=== PATIENT | female | born 1980 | race Caucasian/White ===

== ENCOUNTER 2020-06-26 08:00 | Emergency (ER) | payer OTHER, SELFPAY ==
[2020-06-26 08:17] VITALS: BP 123/82; PULSE 66; RESP 20; TEMP 36.9; O2SAT 98
--- NOTE | 2020-06-26 08:51 | ED.URI ---
HPI - URI/Sore Throat General Chief Complaint: Upper Respiratory Infection Stated Complaint: abrams/loss of smell/congestion Time Seen by Provider: 06/26/20 08:35 Source: patient Mode of arrival: ambulatory Limitations: no limitations History of Present Illness HPI Narrative: This patient is a 39 year old female who presents for evaluation headache and sinus congestion. She states 2 days ago she developed sinus congestion, fever and frontal headache. She states her fever has resolved but she is still getting a headache and neck pain. She denies shortness of breath or chest pain. She reports her family has similar symptoms but she got scared so she came to ER. Related Data Home Medications Medication Instructions Recorded Confirmed valacyclovir 06/26/20 Allergies Allergy/AdvReac Type Severity Reaction Status Date / Time codeine Allergy Mild Rash Verified 06/26/20 08:35 Review of Systems Review of Systems: All systems reviewed & are unremarkable except as noted in HPI and below Constitutional: Constitutional: Reports chills and Reports fever(s) ENT: Reports nasal congestion Cardiovascular: Cardiovascular: Denies chest pain Respiratory: Respiratory: Denies dyspnea Gastrointestinal: Gastrointestinal: Denies abdominal pain and Reports nausea Neurologic: Reports headache(s) [facility] [place] Past Medical History Medical History (Updated 06/26/20 @ 10:00 by Sparkle Velazquez MD) Patient denies medical problems Surgical History Surgical History (Updated 06/26/20 @ 08:54 by Sparkle Velazquez MD) H/O section History of cholecystectomy Social History Social History (Updated 06/26/20 @ 08:55 by Sparkle Velazquez MD) Smoking status: Never smoker Exam Const: General: no acute distress and alert Orientation/consciousness: patient oriented x3 HENMT: Head: normocephalic and atraumatic Face and sinus: face symmetric Mouth: Yes Normal oral and palatal mucosa present, Yes lip normal, Yes oropharynx normal and Yes moist mucous membranes Eyes: Conjunctivae: conjunctivae normal Pupils: Equal, round and reactive pupils present EOM: EOMs intact bilaterally Chest: Chest palpation & inspection: normal inspection of the chest Resp: Effort & Inspection: normal respiratory effort and no retractions Auscultation: clear to auscultation bilaterally Cardio: Rate: regular rate Rhythm: regular rhythm Heart sounds: no murmurs Skin: General skin exam: normal color Rashes: no rashes Neuro: General: patient oriented x3, moves all extremities, no meningeal signs, no focal motor deficits and CN's II-XI intact bilaterally Cranial nerves: Yes Nystagmus not present Speech: normal speech Gait exam (Neuro): Normal gait present Psych: Mental Status: mental status grossly normal Affect: normal affect Course Reevaluation(s) Reevaluation #1: PAtient states she was just told her grandma and sister tested positive. Date: 06/26/20 Time: 09:59 Vital Signs Vital signs: Vital Signs Temperature 98.4 F 06/26/20 08:17 Pulse Rate 66 06/26/20 08:17 Respiratory Rate 20 06/26/20 08:17 Blood Pressure 123/82 06/26/20 08:17 Pulse Oximetry 98 06/26/20 08:17 Temperature 98.4 F 06/26/20 08:17 Pulse Rate 66 06/26/20 08:17 Respiratory Rate 20 06/26/20 08:17 Blood Pressure 123/82 06/26/20 08:17 Pulse Oximetry 98 06/26/20 08:17 MDM - URI/Sore Throat Lab Data Labs: Lab Results 06/26/20 Range/Units 09:05 SARS-CoV-2 RNA (RT-PCR) Pending Discharge Plan Discharge Clinical Impression: Suspected 2019-nCoV infection, URI (upper respiratory infection) Patient Disposition: Home, Self-Care Condition: Stable Instructions: Viral Syndrome (ED), COVID-19 (Coronavirus Disease 2019) (ED) Additional Instructions: You will need to quarantine until 10 days after start of your symptoms. Prescriptions: No Action valacyclovir 1 gram tablet RF: 0 Follow-up/
[2020-06-26] MEDS: KETOROLAC (*BKC) 60 MG/2 ML VIAL IM (09:16)
[2020-06-26] MEDS: ONDANSETRON HCL ODT 4 MG TABLET PO (09:16)
[2020-06-26 19:16] LABS: SARS-CoV-2 RNA PCR Positive
== END 2020-06-26 10:14 | disposition home or self-care (01) ==
PROVIDERS: Emergency Provider General Practice
DX: U07.1 COVID-19 (principal); J06.9 Acute upper respiratory infection, unspecified
CPT/HCPCS: 87635; 96372; 99283; A9270; C9803; J1885; U0003

== ENCOUNTER 2020-09-27 21:22 | Emergency (ER) | payer OTHER, SELFPAY ==
--- NOTE | ~2020-09-27 | CT_ITS ---
EXAMINATION: CTA chest PE protocol DATE: 09/28/2020 02:16 INDICATION: Shortness of breath. TECHNIQUE: Computed tomography angiography (CTA) of the chest was performed with 100 mL Omnipaque-350 intravenous contrast timed to evaluate the pulmonary arteries. Coronal maximum intensity projection 3D-reconstructions were created by the technologist. Automated exposure control and iterative reconst ruction technique were employed. The dose-length product was 844.64 mGy-cm. COMPARISON: CT abdomen and pelvis 04/30/2017 FINDINGS: The lungs demonstrate minimal atelectasis. A calcified left lung nodule and calcified left hilar lymph nodes are consistent with old granulomatous disease. No pleural effusion. The heart size is normal. No pericardial effusion. There is residual thymus in the anterior mediastinum. There are s urgical changes of the stomach. There are changes of cholecystectomy. There is no pulmonary embolus. There is mild thoracic spondylosis. IMPRESSION: 1. No pulmonary embolus. Reviewed, dictated and finalized at location A. 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 No pulmonary embolus.
--- NOTE | ~2020-09-27 | XR_ITS ---
EXAMINATION: XR chest 1V portable DATE: 09/28/2020 01:25 INDICATION: Fever. Shortness of breath. TECHNIQUE: A single frontal view of the chest was obtained. COMPARISON: Chest 2 views 12/31/2015, chest CT 09/28/2020 FINDINGS: The chest demonstrates clear lungs without pneumonia, pleural effusion, or pneumothorax. Th e heart size is normal. IMPRESSION: 1. No acute cardiopulmonary disease. Reviewed, dictated and finalized at location A. 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
[2020-09-27 21:24] VITALS: BP 125/74; PULSE 107; RESP 16; TEMP 37.2; O2SAT 97
[2020-09-28 00:36] VITALS: BP 124/68; PULSE 93; RESP 17; TEMP 38.1; O2SAT 97
--- NOTE | 2020-09-28 01:06 | ECG_ITS ---
Measurements Intervals [place] Rate: 85 P: 40 IN: 188 QRS: 14 QRSD: 103 T: 33 QT: 358 QTc: 428 Interpretive Statements SINUS RHYTHM INCOMPLETE RIGHT BUNDLE BRANCH BLOCK BORDERLINE ECG Electronically Signed On 09-28-2020 7:00:02 TELECOMMUNICATIONS CLERK by Kevin Wall D.O.
--- NOTE | 2020-09-28 01:08 | ED.GENADULT ---
HPI - General Adult General Chief complaint: Nausea/Vomiting/Diarrhea Stated complaint: chills nausea Time Seen by Provider: 09/28/20 00:50 Source: patient Mode of arrival: ambulatory Limitations: no limitations History of Present Illness HPI narrative: This is a 40 year old female who presents for evaluation of not feeling well. She states starting at 4 pm yesterday she developed bodyaches, chills, sweats. She also reports nausea. 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 She has not taken anything for her symptoms. She denies cough, chest pain, abdominal pain, or urinary symptoms. She was found to have fever in triage. Related Data Home Medications Medication Instructions Recorded Confirmed valacyclovir 06/26/20 07/02/20 Allergies Allergy/AdvReac Type Severity Reaction Status Date / Time codeine Allergy Mild Rash Verified 09/28/20 00:38 Review of Systems Review of Systems: All systems reviewed & are unremarkable except as noted in HPI and below Constitutional: Constitutional: Reports chills and Reports fatigue ENT: Denies nasal congestion and Denies sore throat Cardiovascular: Cardiovascular: Denies chest pain Respiratory: Respiratory: Denies cough and Reports dyspnea Gastrointestinal: Gastrointestinal: Denies abdominal pain, Denies diarrhea, Reports nausea and Denies vomiting Neurologic: Reports headache(s) PMFSH Past Medical History Medical History (Updated 09/28/20 @ 02:53 by Sparkle Velazquez MD) GERD (gastroesophageal reflux disease) HSV-2 (herpes simplex virus 2) infection Surgical History Surgical History (Updated 07/02/20 @ 09:59 by Effie Domínguez NP) H/O section x3 H/O dilation and curettage H/O gastric bypass H/O: hysterectomy History of cholecystectomy History of tonsillectomy and adenoidectomy Family History Family History (Updated 07/02/20 @ 08:18 by Nay Damon CMA) Grandparent Cancer Kidney problem Social History Social History (Updated 06/26/20 @ 08:55 by Sparkle Velazquez MD) Smoking status: Never smoker Gender identity (if verbalized by the patient): Female Exam Narrative: Exam Narrative: GENERAL: Well-appearing, well-nourished, and in no acute distress. HEAD: Normocephalic, atraumatic EYES: PERRLA and EOMI, conjunctiva clear without discharge EARS: TM's clear bilaterally without erythema or dullness NOSE: Nares clear, no rhinorrhea or epistaxis THROAT:Mucous membranes moist, Oropharynx normal without erythema, exudate, peritonsillar swelling or fluctuance NECK: Supple, without lymphadenopathy or mass RESPIRATORY: No respiratory distress, Airway patent, Respirations non-labored, Clear to auscultation without rales, rhonchi or wheeze HEART: Regular rate and rhythm. No murmur heard. Normal peripheral pulses. ABDOMEN: Soft, nontender, nondistended, normal active bowel sounds. No masses. No rebound or guarding, No organomegaly. EXTREMITIES: No edema, normal strength with full range of motion. SKIN: Warm, dry, normal color without rash NEURO: Alert and oriented x3. CN 2-12 grossly intact. No focal deficits. PSYCH: Normal mood and affect. Course Reevaluation(s) Reevaluation #1: I have discussed with patient that she was found to have influenza B as cause of her symptoms. COVID is still pending but she had 3 months ago. I Discussed discharge plan and treatment. Date: 09/28/20 Time: 02:48 Vital Signs Vital signs: Vital Signs Temperature 98.9 F 09/27/20 21:24 Pulse Rate 107 H 09/27/20 21:24 Respiratory Rate 16 09/27/20 21:24 Blood Pressure 125/74 09/27/20 21:24 Pulse Oximetry 97 09/27/20 21:24 Temperature 98.9 F 09/28/20 03:06 Pulse Rate 81 09/28/20 03:06 Respiratory Rate 16 09/28/20 03:06 Blood Pressure 127/86 09/28/20 03:06 Pulse Oximetry 98 09/28/20 03:06 Medical Decision Making Medical Records Medical records reviewed: Yes I reviewed the exter
[2020-09-28 01:35] LABS: Basophils Percent Auto 0.1 % (0.2-1.2); Eosinophils Percent Auto 0.2 % (0-4.4); Hemoglobin 14.3 g/dL (12.0-15.0); Immature Granulocyte Absolute 0.03 K/mm3 (0.00-0.031); Immature Granulocyte Percent A 0.3 % (0-0.5); Lymphocytes Absolute Auto 0.59 K/mm3 (0.9-3.2); Lymphocytes Percent Auto 6.8 % (18.3-44.2); Mean Corpuscular Hemoglobin 30.4 pg (26-34); Mean Corpuscular Volume 89.4 fl (80-100); Mean Platelet Volume 9.4 fl (7.4-10.4); Monocytes Absolute Auto 0.6 K/mm3 (0.1-0.6); Monocytes Percent Auto 6.8 % (2.6-8.5); Neutrophils Absolute Auto 7.4 K/mm3 (1.3-6.7); Neutrophils Percent Auto 85.8 % (45.5-73.1); Platelet Count Result 178 k/mm3 (150-375); Red Cell Distribution Width 12.2 % (11.5-14.5); White Blood Count 8.6 K/mm3 (4.5-10.0)
[2020-09-28] MEDS: ONDANSETRON INJ 4 MG/2 ML VIAL IV PUSH (01:44)
[2020-09-28] MEDS: SODIUM CHLORIDE 0.9% IV 1,000 ML 999 ML IV CONT (01:44)
[2020-09-28 01:47] LABS: INR 0.9; Prothrombin Time 13.1 Seconds (11.1-14.7)
[2020-09-28 01:48] LABS: Partial Thromboplastin Time 32.1 SECONDS (22.3-36.8)
[2020-09-28 01:50] LABS: Add Urine Microscopic? NO; Appearance Urine Clear (Clear); Bilirubin Urine Negative (Negative); Blood Urine Negative (Negative); Color Urine Yellow (Yellow); D Dimer 0.78 ug/mL (<0.48); Glucose Urine UA Negative (Negative); Ketones Urine Negative (Negative); Leukocyte Esterase Ur Negative LEU/UL (Negative); Nitrate Urine Negative (Negative); Protein Urine Negative (Negative); Specific Grav Ur 1.015 (1.001-1.035); Urobilinogen Urine Negative mg/dL (<2.0)
[2020-09-28 01:53] LABS: Alanine Aminotransferase 21 U/L (4-35); Albumin Level 3.7 g/dL (3.5-5.1); Alkaline Phosphatase 115 U/L (38-126); Anion Gap 3 mmol/L (8-16); Aspartate Amino Transferase 27 U/L (14-36); Bilirubin,Total 0.5 mg/dL (0.2-1.3); Blood Urea Nitrogen 11 mg/dL (7-17); Calcium 8.6 mg/dL (8.4-10.2); Carbon Dioxide 31 mmol/L (22-30); Chloride 104 mmol/L (98-107); Estimated CRCL calculation 112 ml/min; Estimated Glomerular Filt Rate > 60; Glucose 118 mg/dL (65-105); Lipase 59 U/L (23-300); Potassium 3.9 mmol/L (3.4-5.0); Sodium 138 mmol/L (137-145)
[2020-09-28 02:25] LABS: CRP 4.6 mg/dL (<1.0)
[2020-09-28 02:32] VITALS: BP 124/78; PULSE 89; RESP 16; TEMP 37.2; O2SAT 97
[2020-09-28 03:06] VITALS: BP 127/86; PULSE 81; RESP 16; TEMP 37.2; O2SAT 98
[2020-09-28 13:21] LABS: SARS-CoV-2 RNA PCR Negative
== END 2020-09-28 03:07 | disposition home or self-care (01) ==
PROVIDERS: Emergency Provider General Practice; PCP Internal Medicine
DX: J10.1 Influenza due to other identified influenza virus with other respiratory manifestations (principal); Z20.822 Contact with and (suspected) exposure to COVID-19; K21.9 Gastro-esophageal reflux disease without esophagitis; Z98.84 Bariatric surgery status
CPT/HCPCS: 36415; 71045; 71275; 80053; 81003; 83605; 83690; 85025; 85380; 85610; 85730; 86140; 87804; 87880; 93005; 96365; 96375; 99284; C9803; J0131; J2405; J7030; Q9967; U0003; U0005

== ENCOUNTER 2021-01-14 12:37 | Outpatient (CLI) | payer OTHER, SELFPAY ==
--- NOTE | ~2021-01-14 | US_ITS ---
EXAMINATION: US venous doppler LE RT DATE: 01/14/2021 13:22 INDICATION: Right lower limb pain TECHNIQUE: Hoffman scale images without and with compression and Doppler images of the right lower extre mity veins were obtained. COMPARISON: None FINDINGS: The right common femoral vein, profunda femoral vein, femoral vein, popliteal vein, peronea l trunk, posterior tibial veins, and greater saphenous vein are patent. IMPRESSION: 1. Patent right lower extremity veins. No evidence of deep venous thrombosis. Reviewed, dictated and finalized at location A.
[2021-01-14 13:36] LABS: Basophils Percent Auto 0.4 % (0.2-1.2); Eosinophils Absolute Auto 0.1 K/mm3 (0-0.3); Eosinophils Percent Auto 1.9 % (0-4.4); Hematocrit 43.3 % (37.0-47.0); Hemoglobin 14.1 g/dL (12.0-15.0); Immature Granulocyte Absolute 0.01 K/mm3 (0.00-0.031); Immature Granulocyte Percent A 0.2 % (0-0.5); Lymphocytes Absolute Auto 1.89 K/mm3 (0.9-3.2); Lymphocytes Percent Auto 35.3 % (18.3-44.2); Mean Corpuscular HGB Conc 32.6 g/dl (32-36); Mean Corpuscular Hemoglobin 29.6 pg (26-34); Mean Platelet Volume 9.1 fl (7.4-10.4); Monocytes Absolute Auto 0.4 K/mm3 (0.1-0.6); Monocytes Percent Auto 6.5 % (2.6-8.5); Neutrophils Percent Auto 55.7 % (45.5-73.1); Platelet Count Result 198 k/mm3 (150-375); Red Blood Count 4.76 M/mm3 (4.2-5.4); Red Cell Distribution Width 12.4 % (11.5-14.5); White Blood Count 5.4 K/mm3 (4.5-10.0)
[2021-01-14 13:47] LABS: Magnesium 2.1 mg/dL (1.6-2.3)
[2021-01-14 14:46] LABS: Vitamin D 25 Hydroxy 33.5 ng/mL
== END 2021-01-14 12:38 | disposition home or self-care (01) ==
LOC: ANHIMG 12:42
PROVIDERS: PCP Internal Medicine; Visit Provider Nurse Practitioner
DX: R25.2 Cramp and spasm (principal); M79.669 Pain in unspecified lower leg; E55.9 Vitamin D deficiency, unspecified
CPT/HCPCS: 36415; 82306; 82607; 82746; 83735; 84443; 85025; 93971

== ENCOUNTER 2022-08-16 09:02 | Outpatient (CLI) | payer OTHER, MEDICAID, SELFPAY ==
[2022-08-16 09:30] LABS: Basophils Percent Auto 0.3 % (0.2-1.2); Eosinophils Absolute Auto 0.1 K/mm3 (0-0.3); Eosinophils Percent Auto 2.1 % (0-4.4); Hematocrit 41.3 % (37.0-47.0); Hemoglobin 13.5 g/dL (12.0-15.0); Immature Granulocyte Absolute 0.01 K/mm3 (0.00-0.031); Immature Granulocyte Percent A 0.2 % (0-0.5); Lymphocytes Absolute Auto 1.62 K/mm3 (0.9-3.2); Lymphocytes Percent Auto 28.3 % (18.3-44.2); Mean Corpuscular HGB Conc 32.7 g/dl (32-36); Mean Corpuscular Hemoglobin 28.9 pg (26-34); Mean Corpuscular Volume 88.4 fl (80-100); Mean Platelet Volume 9.1 fl (7.4-10.4); Monocytes Absolute Auto 0.4 K/mm3 (0.1-0.6); Monocytes Percent Auto 6.6 % (2.6-8.5); Neutrophils Absolute Auto 3.6 K/mm3 (1.3-6.7); Neutrophils Percent Auto 62.5 % (45.5-73.1); Platelet Count Result 209 k/mm3 (150-375); Red Blood Count 4.67 M/mm3 (4.2-5.4); White Blood Count 5.7 K/mm3 (4.5-10.0)
[2022-08-16 15:14] LABS: Alanine Aminotransferase 23 U/L (6-35); Albumin Level 3.6 g/dL (3.5-5.1); Alkaline Phosphatase 110 U/L (38-126); Anion Gap 5 mmol/L (8-16); Aspartate Amino Transferase 29 U/L (14-36); Bilirubin,Total 0.4 mg/dL (0.2-1.3); Blood Urea Nitrogen 19 mg/dL (7-17); Calcium 8.8 mg/dL (8.4-10.2); Carbon Dioxide 28 mmol/L (22-30); Chloride 108 mmol/L (98-107); Cholesterol 127 mg/dL (0-200); Estimated Glomerular Filt Rate > 60; Glucose 94 mg/dL (65-110); HDL Direct 42 mg/dL; Potassium 3.9 mmol/L (3.4-5.0); Sodium 141 mmol/L (137-145); Triglycerides 63 mg/dL (<150)
[2022-08-16 15:25] LABS: LDL Cholesterol Direct 61 mg/dL
== END 2022-08-16 09:03 | disposition home or self-care (01) ==
LOC: ANHLAB 09:04
PROVIDERS: PCP Internal Medicine; Visit Provider Nurse Practitioner
DX: R00.2 Palpitations (principal); Z13.220 Encounter for screening for lipoid disorders; Z13.29 Encounter for screening for other suspected endocrine disorder
CPT/HCPCS: 36415; 80053; 80061; 84443; 85025

== ENCOUNTER 2023-10-06 20:11 | Emergency (ER) | payer OTHER, SELFPAY ==
--- NOTE | ~2023-10-06 | XR_ITS ---
EXAMINATION: XR chest 2V Exam Date/Time: 10/06/2023 20:29 CDT HISTORY: chest pain, HEART PALPATATIONS Comparison: 09/28/2020. RESULT: Lines, tubes, and devices: None. Lungs and pleura: Clear. Cardiomediastinal silhouette: Stable. Other: No acute osseous or upper abdominal finding. IMPRESSION: No acute cardiopulmonary process. Reviewed, dictated and finalized at location K.
[2023-10-06 20:14] VITALS: BP 133/93; PULSE 62; RESP 18; TEMP 36.6; O2SAT 100
--- NOTE | 2023-10-06 20:19 | ECG_ITS ---
Measurements Intervals [place] Rate: 64 P: 22 [place]: 183 QRS: -3 QRSD: 98 T: 32 QT: 395 QTc: 410 Interpretive Statements SINUS RHYTHM INCOMPLETE RIGHT BUNDLE BRANCH BLOCK BASELINE ARTIFACT- I, II, III, AVR, AVL BORDERLINE ECG NO PREVIOUS ECG AVAILABLE FOR COMPARISON Electronically Signed On 10-06-2023 20:34:10 CDT by Kevin Wall D.O.
[2023-10-06 20:41] LABS: Basophils Percent Auto 0.1 % (0.2-1.2); Eosinophils Absolute Auto 0.1 K/mm3 (0-0.3); Eosinophils Percent Auto 1.7 % (0-4.4); Hematocrit 39.1 % (37.0-47.0); Hemoglobin 12.6 g/dL (12.0-15.0); Immature Granulocyte Absolute 0.01 K/mm3 (0.00-0.031); Immature Granulocyte Percent A 0.1 % (0-0.5); Lymphocytes Absolute Auto 2.97 K/mm3 (0.9-3.2); Lymphocytes Percent Auto 39.4 % (18.3-44.2); Mean Corpuscular HGB Conc 32.2 g/dl (32-36); Mean Corpuscular Hemoglobin 29.2 pg (26-34); Mean Corpuscular Volume 90.7 fl (80-100); Mean Platelet Volume 8.9 fl (7.4-10.4); Monocytes Absolute Auto 0.6 K/mm3 (0.1-0.6); Monocytes Percent Auto 7.4 % (2.6-8.5); Neutrophils Absolute Auto 3.9 K/mm3 (1.3-6.7); Neutrophils Percent Auto 51.3 % (45.5-73.1); Platelet Count Result 215 k/mm3 (150-375); Red Blood Count 4.31 M/mm3 (4.2-5.4); Red Cell Distribution Width 12.7 % (11.5-14.5); White Blood Count 7.5 K/mm3 (4.5-10.0)
[2023-10-06 20:53] LABS: Alanine Aminotransferase 22 U/L (6-35); Albumin Level 3.9 g/dL (3.5-5.1); Alkaline Phosphatase 101 U/L (38-126); Anion Gap 5 mmol/L (8-16); Aspartate Amino Transferase 28 U/L (14-36); Bilirubin,Total 0.4 mg/dL (0.2-1.3); Blood Urea Nitrogen 17 mg/dL (7-17); Calcium 9.4 mg/dL (8.4-10.2); Carbon Dioxide 26 mmol/L (22-30); Chloride 107 mmol/L (98-107); Estimated CRCL calculation 129 ml/min; Estimated Glomerular Filt Rate > 60; Glucose 89 mg/dL (65-110); Lipase 75 U/L (23-300); Potassium 3.5 mmol/L (3.4-5.0); Sodium 138 mmol/L (137-145)
[2023-10-06 20:54] LABS: INR 0.9; Prothrombin Time 12.2 Seconds (11.1-14.7)
[2023-10-06 20:55] LABS: Partial Thromboplastin Time 29.7 Seconds (22.3-36.8)
[2023-10-06 20:56] VITALS: PULSE 64
[2023-10-06 20:57] VITALS: O2SAT 99
[2023-10-06] MEDS: ASPIRIN 81 MG CHEWABLE TABLET 324 MG PO (20:58)
[2023-10-06 21:00] VITALS: BP 134/87; PULSE 72; RESP 12; O2SAT 99
[2023-10-06 21:04] LABS: Troponin I < 0.012 ng/mL (0.000-0.034)
--- NOTE | 2023-10-06 21:24 | ED.GENADULT ---
HPI - General Adult General Chief complaint: Arrhythmia/Palpitations Stated complaint: palpitations/left arm numbness, sob Time Seen by Provider: 10/06/23 21:05 Source: patient Mode of arrival: ambulatory Limitations: no limitations History of Present Illness HPI narrative: This is a 43-year-old female who presents to the ED with chief complaint of palpitations and chest pressure that began this evening. Reports that she has been dealing with this intermittently for the past month or so. Also reports intermittent left arm tingling that is resolved. Reports most bothersome symptom who is the feeling of palpitations. Reports chest pain is minimal, it is more of a discomfort with the palpitations. She is scheduled to see PCP this month but has not been able to be seen yet for this. Denies leg swelling, back pain, Related Data Home Medications Medication Instructions Recorded Confirmed valacyclovir 1 gram tablet 06/26/20 03/25/23 [id number] carb-vit K 1 tablet PO DAILY 01/14/21 03/25/23 18 mg iron-400 mcg-500 mg tablet (Women's Multivitamin) Allergies Allergy/AdvReac Type Severity Reaction Status Date / Time codeine Allergy Mild Rash Verified 03/25/23 14:41 Review of Systems Review of Systems: All systems as dictated in [facility] Past Medical History Medical History GERD (gastroesophageal reflux disease) HSV-2 (herpes simplex virus 2) infection Surgical History Surgical History H/O section x3 H/O dilation and curettage H/O gastric bypass H/O: hysterectomy History of cholecystectomy History of tonsillectomy and adenoidectomy Family History Family History Grandparent Cancer Kidney problem Social History Social History (Updated 03/25/23 @ 14:50 by Karolina Linda CMA) Smoking status: Never smoker Lack of Transportation: No Lack of Food: Sometimes True Current Housing: I Have Housing Concerned About Future Housing: No Difficulty Paying Gas/Electric Bills: YES Difficulty Paying for Meds: No Currently Unemployed: No Education: Trade/Vocational Certificate Difficulty w/ Childcare or Family Care: No Gender identity (if verbalized by the patient): Female Exam Narrative: GENERAL: Well-appearing, well-nourished, and in no acute distress. HEAD: Normocephalic, atraumatic. EYES: PERRLA and EOMI. ENT: Nares clear, no rhinorrhea or epistaxis. Mucous membranes moist. Oropharynx without tonsillar hypertrophy exudate or other lesions. NECK: Supple. No adenopathy or masses. CHEST: No respiratory distress. Clear to auscultation. No wheezes rales or rhonchi HEART: Regular rate and rhythm. No murmur heard. Normal peripheral pulses. ABDOMEN: Soft, nontender, nondistended, normal active bowel sounds. MSK: Normal range of motion. No edema. SKIN: Warm, dry, no rash. NEURO: Alert and oriented x3. No focal deficits. PSYCH: Normal mood and affect. Course Vital Signs Vital signs: Vital Signs Temperature 98 F 10/06/23 20:14 Pulse Rate 62 10/06/23 20:14 Respiratory Rate 18 10/06/23 20:14 Blood Pressure 133/93 H 10/06/23 20:14 Pulse Oximetry 100 10/06/23 20:14 Oxygen Delivery Room Air 10/06/23 20:14 Temperature 97.9 F 10/06/23 21:48 Pulse Rate 62 10/06/23 21:48 Respiratory Rate 16 10/06/23 21:48 Blood Pressure 115/83 10/06/23 21:48 Pulse Oximetry 100 10/06/23 21:48 Oxygen Delivery Room Air 10/06/23 20:57 Medical Decision Making [facility] Narrative Medical decision making narrative: This is a 43-year-old female who presents to the ED for chief complaint of intermittent chest palpitations and pressure for the past several weeks. Vitals are normal. Exam is benign. EKG shows normal sinus rhythm. Lab work is unremarkable. Troponin negative. Chest
[2023-10-06 21:48] VITALS: BP 115/83; PULSE 62; RESP 16; TEMP 36.6; O2SAT 100
== END 2023-10-06 21:49 | disposition home or self-care (01) ==
PROVIDERS: Emergency Medicine; Emergency Provider Physician Assistant; PCP Internal Medicine
DX: R00.2 Palpitations (principal); R07.89 Other chest pain; K21.9 Gastro-esophageal reflux disease without esophagitis; Z98.84 Bariatric surgery status; Z90.710 Acquired absence of both cervix and uterus; Z90.49 Acquired absence of other specified parts of digestive tract; I45.10 Unspecified right bundle-branch block
CPT/HCPCS: 36415; 71046; 80053; 83690; 84484; 85025; 85610; 85730; 93005; 99284; A9270

== ENCOUNTER 2024-03-25 15:29 | Outpatient (CLI) | payer OTHER, SELFPAY ==
--- NOTE | ~2024-03-25 | MM_ITS ---
EXAMINATION: MM screening margy BI w castro HISTORY: Screening TECHNIQUE: Craniocaudal and mediolateral oblique 3-D tomosynthesis images were obtained and synthetic 2-D images were generated. CAD analysis was submitted and interpreted. COMPARISON: 07/15/2017 BREAST PARENCHYMAL COMPOSITION: Not Dense: The breasts are almost entirely fatty. FINDINGS: There is no evidence of suspicious mass, calcification, or architectural distortion to sugg est malignancy in either breast. There has been no suspicious interval change. IMPRESSION: 1. No mammographic evidence of malignancy. 2. Recommend routine screening mammography in one year. BI-RADS Category 1: Negative Reviewed, dictated and finalized at location B.
== END 2024-03-25 15:30 | disposition home or self-care (01) ==
PROVIDERS: PCP Internal Medicine; Visit Provider Obstetrics & Gynecology
DX: Z12.31 Encounter for screening mammogram for malignant neoplasm of breast (principal)
CPT/HCPCS: 77063; 77067

== ENCOUNTER 2025-05-06 20:28 | Emergency (ER) | payer SELFPAY ==
--- NOTE | ~2025-05-06 | XR_ITS ---
Examination: XR chest 2V Clinical History: Chest pain Comparison: 10/06/2023 Technique: PA and Lateral Findings: Cardiomediastinal silhouette normal size and configuration. Lungs clear. No acute bony abnormality. IMPRESSION: 1. No acute cardiopulmonary findings. Reviewed, dictated and finalized at location R.
--- OUTSIDE RECORDS SUMMARY | 2025-05-06 20:30 | XMS_ITS | Data Portability ---
Author Organization [facility] Address [address] [place] [address] Assessment Encounter Date Assessment Date Assessment LastModified by Organization Details LastModified Time 12/06/2021 12/06/2021 MAIKEL Martinez Not available 12/06/2021 14:55:12 Plan of Treatment Reminders Order Date Submit Date Provider Last Modified By Organization Details Last Modified Time Details Appointments None recorded. Lab treponema pallidum IgG + IgM Ab, QL, IA, serum 2022 023 [place] [facility], [address], [place], [address], 3 05:10:09 HBsAg (hepatiti s B surface Ag), EIA, serum 2022 023 [facility], [address], [place], [address], 3 05:10:09 Hepatitis C IgG Ab, qual, serum 2022 023 [place] [facility], [address], [place], [address], 3 05:10:08 chlamydia trachomat is + neisseria gonorrhoe ae + trichomon as vaginalis DNA panel, CASPER+probe , unspecifi ed specimen 2022 023 [place] [facility], [address], [place], [address], 3 05:10:08 HIV 1 + 2, meaningfu l use set 2022 023 [facility], [address], [place], [address], 3 05:10:10 bacterial vaginosis score, CASPER+probe , vaginal fluid (OBS) 2021 022 [facility], [address], [place], [address], 2 20:08:44 HbA1c (hemoglob in A1c), blood 2019 020 [facility] In-Office Order, Internal Use Only DO Not Attach Compendium DO Not Attach Compendium, Do Not Delete/merge, [id number] 0 10:22:15 HIV (1+2) Ab, rapid, unspecifi ed specimen 2019 020 [facility] In-Office Order, Internal Use Only DO Not Attach Compendium DO Not Attach Compendium, Do Not Delete/merge, [id number] 0 10:22:15 herpes simplex, culture, unspecifi ed specimen 2018 019 [facility], [address], [address], [place], [address], 9 18:32:23 culture, vaginal/r ectal, streptoco ccus group B 2018 019 [facility], [address], [address], [place], [address], 9 06:09:18 HSV (1+2) DNA, qual, PCR, unspecifi ed specimen 2018 019 [facility], [address], [address], [place], [address], 9 06:09:17 bacterial vaginosis + vaginitis panel, vaginal 2018 019 [facility], [address] [facility], [address], [place], [address], 9 06:09:17 urinalysi s, dipstick 2018 019 [facility] In-Office Order, Internal Use Only DO Not Attach Compendium DO Not Attach Compendium, Do Not Delete/merge, [id number] 9 18:32:23 hepatitis panel (A+B+C), acute, serum 2018 019 [facility], [address], [facility] [address], [place], [address], 9 20:08:46 hepatitis B surface Ab, qualitati ve, serum 2018 019 [facility], [address], [address], [place], [address], 9 20:08:46 HIV 1+2 AB + HIV 1 p24 Ag, qualitati ve immunoass ay, serum 2018 019 [facility], [address], [place], [address], 9 20:08:47 treponema pallidum screen, serum, reflex confirmat ion 2018 019 [facility] (Centralized Electronic Ordering - All Locations), Patient Can Go To The Location Of Their Choice, 9 20:08:47 HSV 2 IgG Ab, QN, IA, serum 2018 019 [facility] (Centralized Electronic Ordering - All Locations), Patient Can Go To The Location Of Their Choice, [id number] 9 20:08:48 Referral None recorded. Procedures None recorded. Surgeries None recorded. Imaging MAMMO, screening , bilateral 2022 023 [facility], [address], [address] [address], [place], [address], 4 14:15:01 Medication Orders Premarin 0.625 mg/gram vaginal cream 2021 [facility], [address] [place] [address], [id number], 2 13:01:20 valacyclo vir 1 gram tablet 2021 [facility], [address] [place] [address], [id number], 3 17:16:59 Premarin 0.625 mg/gram vaginal cream 2018 019 dgriggsma Not available 2 12:20:36 norethind sharon (contrace ptive) 0.35 mg tablet 2018 [facility]19 [id number], [address], [place], [id number], 2 12:19:47 baclofen 10 mg tablet 2017 018 [id number], [address], [place], [id number], 2 12:18:33 ibuprofen 800 mg tablet 2017 018 [id number], [address], [place], [id number], 2 12:19:18 prednison e 20 mg tablet 2017 018 [facility][id number], [address] [place], [place], [id number], 2 12:20:30 Patient TargetsNo targets recorded. Patient Instructions Encounter Date Encounter Id Patient Instructions Last Modified By Organization Details Last Modified Time 12/30/2018 [id number] atrophic vaginitis: care instructions ivana Not available 12/30/2018 17:47:08 genital herpes: care instructions ivana Not available 12/30/2018 18:32:23 hot flashes during menopause: care instructions mwasskrystyna Not available 12/30/2018 17:49:35 When You Want to Lose Weight: Care Instructions mwasserman Not available 12/30/2018 17:37:43 exposure to sexually transmitted infections: care instructions mwasskrystyna Not available 12/30/2018 18:32:23 02/15/2020 [id number] HIV testing: car e instructions ivana Not available 02/15/2020 17:20:14 12/06/2021 [id number] herpes genital: instrucciones de cuidado - [genital herpes: care instructions] Not available 12/06/2021 12:39:30 01/21/2023 [id number] A healthy lifestyle: care instructions Not available 01/21/2023 12:35:56 Well Visit, Ages 18 to 65: Care Instructions Not available 01/21/2023 12:35:49 learning about breast cancer screening Not available 01/21/2023 12:35:49 safer sex: care instructions Not available 01/21/2023 12:36:13 Reason for Referral None Reported. Results Created Date Observation Date Name Description Value Unit Range Abnormal Flag Note LastModifiedBy Organization Detail LastModifiedTime 12/31/19 19 12/30/2018 urina lysis , dipst ick Leukocytes Trace Not Available In-Offi ce Order Internal Use Only DO Not Attach Compendium DO Not Attach Compendium, Do Not Delete/merge, [id number] 12/30/2018 17:34:01 12/31/19 19 12/30/2018 urina lysis , dipst ick Nitrite negati ve Not Available In-Office Order Internal Use Only DO Not Attach Compendium DO Not Attach Compendium, Do Not Delete/merge, [id number] 12/30/2018 17:34:01 12/31/19 19 12/30/2018 urina lysis , dipst ick Urobilinogen .2 Not Available In-Of fice Order Internal Use Only DO Not Attach Compendium DO Not Attach Compendium, Do Not Delete/merge, [id number] 12/30/2018 17:34:12/31/19 19 12/30/2018 urina lysis , dipst ick Protein Negati ve Not Available In-Office Order Internal Use Only DO Not Attach Compendium DO Not Attach Compendium, Do Not Delete/merge, [facility] 12/30/2018 17:34:12/31/19 19 12/30/2018 urina lysis , dipst ick pH 6.0 Not Available In-Office Order Internal Use Only DO Not Attach Compendium DO Not Attach Compendium, Do Not Delete/merge, [facility] 12/30/2018 17:34:12/31/19 19 12/30/2018 urina lysis , dipst ick Blood Negati ve Not Available In-Office Order Internal Use Only DO Not Attach Compendium DO Not Attach Compendium, Do Not Delete/merge, [facility] 12/30/2018 17:34:12/31/19 19 12/30/2018 urina lysis , dipst ick Specific Destin 1.005 Not Available In-Off ice Order Internal Use Only DO Not Attach Compendium DO Not Attach Compendium, Do Not Delete/merge, [facility] 12/30/2018 17:34:12/31/19 19 12/30/2018 urina lysis , dipst ick Ketone Negati ve Not Available In-Office Order Internal Use Only DO Not Attach Compendium DO Not Attach Compendium, Do Not Delete/merge, [facility] 12/30/2018 17:34:12/31/19 19 12/30/2018 urina lysis , dipst ick Bilirubin Negati ve Not Available In-Office Order Internal Use Only DO Not Attach Compendium DO Not Attach Compendium, Do Not Delete/merge, [facility] 12/30/2018 17:34:12/31/19 19 12/30/2018 urina lysis , dipst ick Glucose Negati ve Not Available In-Office Order Internal Use Only DO Not Attach Compendium DO Not Attach Compendium, Do Not Delete/merge, [id number] 12/30/2018 17:34:01 06/0601/03/2019 bacte rial vagin osis + vagin itis panel , vagin al trich vag by CASPER Negati ve negati ve Not Available [facility] ([facility]) [address] [place], [address], 01/08/2019 06:09:17 12/31/1901/03/2019 bacte rial vagin osis + vagin itis panel , vagin al chlamydia trachomatis, CASPER Negati ve negati ve Not Available [facility] ([facility]) [address] [place], [address], 01/08/2019 06:09:17 12/31/1901/03/2019 bacte rial vagin osis + vagin itis panel , vagin al neisseria gonorrhoeae, CASPER Negati ve negati ve Not Available [facility] ([facility]) [address] [place], [address], 01/08/2019 06:09:17 12/31/1901/08/2019 bacte rial vagin osis + vagin itis panel , vagin al atopobium vaginae Low - 0 score Not Available [facility] ([facility]) [address] [place], [address], 01/08/2019 06:09:17 12/31/1901/08/2019 bacte rial vagin osis + vagin itis panel , vagin al bvab 2 Low - 0 score Not Available [facility] ([facility]) [address] [place], [address], 01/08/2019 06:09:17 12/31/1901/08/2019 bacte rial vagin osis + vagin itis panel , vagin al megasphaera 1 Low - 0 score Calcu late total score by jose alfredo martinez the 3 indiv idual bacte rial vagin osis (BV) marke r score s toget her. Total score is inter prete d as follo ws: Total score 0-1: Indic ates the absen ce of BV. Total score 2: Indet ermin ate for BV. Addit ional clini petra data shoul d be evalu ated to estab jaclyn a diagn osis. Total score 3-6: Indic ates the prese nce of BV. This test was devel oped and its perfo rmanc e stephen cteri stics deter mined by [employer]. It has not been clear ed or appro makenna by the Food and Drug Admin istra tion. The FDA has deter mined that such clear ance or appro amada is not neces vinicius. Not Available [facility] ([facility]) [address] [place], [address], 01/08/2019 06:09:17 12/31/1901/08/2019 bacte rial vagin osis + vagin itis panel , vagin al ani albicans, CASPER Negati ve negati ve Not Available [facility] ([facility]) [address] [place], [address], 01/08/2019 06:09:17 12/31/1901/08/2019 bacte rial vagin osis + vagin itis panel , vagin al ani glabrata, CASPER Negati ve negati ve This test was devel oped and its perfo rmanc e stephen cteri stics deter mined by [facility]. It has not been clear ed or appro makenna by the Food and Drug Admin istra tion. The FDA has deter mined that such clear ance or appro amada is not neces vinicius. Not Available [facility] ([facility]) [address] [place], [address], 01/08/2019 06:09:17 12/31/1901/06/2019 HSV (1+2) DNA, qual, PCR, unspe cifie d speci men hsv 1 CASPER Negati ve negati ve Not Available [facility] ([facility]) [address] [place], [address], 01/08/2019 06:09:17 12/31/19 19 01/06/2019 HSV (1+2) DNA, qual, PCR, unspe cifie d speci men hsv 2 CASPER Positi ve negati ve abnormal Not Available [facility] ([facility]) [address] [facility], [place], [address], 01/08/2019 06:09:17 12/31/1901/01/2019 cultu re, vagin al/re ctal, strep tococ cus group B strep gp B CASPER Negati ve negati ve Cente rs for Disea se Contr ol and Preve ntion (CDC) and Ameri can Congr ess of Obste trici ans and Gynec ologi sts (ACOG ) guide lines for preve ntion of perin atal group B strep tococ petra (GBS) disea se speci fy co-co llect ion of a vagin al and recta l swab speci men to maxim ize sensi tivit y of GBS detec tion. Per the CDC and ACOG, swabb ing both the lower vagin a and rectu m subst antia lly incre ases the yield of detec tion larry red with sampl ing the vagin a alone . Penic illin G, ampic illin , or cefaz ally are indic ated for intra partu m proph ylaxi s of perin atal GBS colon izati on. Refle x susce ptibi lity testi ng shoul d be perfo rmed prior to use of clind amyci n only on GBS isola celena from penic illin -gabriella rgic women who are consi dered a high risk for anaph ylaxi s. Treat ment with vanco mycin witho ut addit ional testi ng is warra nted if resis tance to clind amyci n is noted . Not Available [facility] ([facility]) [address] [facility], [place], [address], 01/08/2019 06:09:18 01/11/2001/11/2019 hepat itis panel (A+B+ C), acute , serum hep A Ab, IgM Negati ve negati ve Not Available [facility] ([facility]) [address] [place], [address], 01/11/2019 20:08:45 01/11/2001/11/2019 hepat itis panel (A+B+ C), acute , serum HBsAg screen Negati ve negati ve Not Available [facility] ([facility]) [address] [place], [address], 01/11/2019 20:08:45 01/11/2001/11/2019 hepat itis panel (A+B+ C), acute , serum hep B core Ab, IgM Negati ve negati ve Not Available [facility] ([facility]) [address] [place], [address], 01/11/2019 20:08:45 01/11/2001/11/2019 hepat itis panel (A+B+ C), acute , serum hep C virus Ab 0.1 s/co_ ratio 0.0-0. 9 Negat jarrell: < 0.8 Indet ermin ate: 0.8 - 0.9 Posit jarrell: > 0.9 The CDC recom mends that a posit jarrell HCV antib matt resul t be follo wed up with a HCV Nucle ic Acid Ampli ficat ion test (5507 13). Not Available [facility] ([facility]) [address] [place], [address], 01/11/2019 20:08:45 01/11/2001/11/2019 hepat itis B surfa ce Ab, quali tativ e, serum hep B surface Ab, qual Reacti ve Non React jarrell: Incon siste nt with immun ity, less than 10 mIU/m L React jarrell: Consi stent with immun ity, great er than 9.9 mIU/m L Not Available [facility] ([facility]) [address] [place], [address], 01/11/2019 20:08:46 01/11/2001/11/2019 trepo nema palli dum scree n, serum , refle x confi rmati on T pallidum antibodies Negati ve negati ve Not Available [facility] ([facility]) [address] [facility], [place], [address], 01/11/2019 20:08:47 01/11/20 19 01/11/2019 HIV 1+2 AB + HIV 1 p24 Ag, quali tativ e immun oassa y, serum HIV screen 4TH generation wrfx Non Reacti ve non reacti ve Not Available [facility] ([facility]) [address] [facility], [place], [address], 01/11/2019 20:08:47 01/11/20 19 01/11/2019 HSV 2 IgG Ab, QN, IA, serum hsv 2 IgG, type spec <0.91 index 0.00-0 .90 Negat jarrell <0.91 Equiv ocal 0.91 - 1.09 Posit jarrell >1.09 Note: Negat jarrell indic ates no antib odies detec saskia to HSV-2 . Equiv ocal may sugge st early infec tion. If clini carmen appro priat e, retes t at later date. Posit jarrell indic ates antib odies detec saskia to HSV-2 . Not Available [facility] ([facility]) [address] [facility], [place], [address], 01/11/2019 20:08:48 02/16/2002/16/2020 HbA1c (hemo globi n A1c), blood HbA1c 5.2 Not Available In-Office Order Internal Use Only DO Not Attach Compendium DO Not Attach Compendium, Do Not Delete/merge, [id number] 02/15/2020 17:20:11 02/16/2002/16/2020 HIV (1+2) Ab, rapid , unspe cifie d speci men Result negati ve Not Available In-Office Order Internal Use Only DO Not Attach Compendium DO Not Attach Compendium, Do Not Delete/merge, [id number] 02/15/2020 17:20:11 02/16/2002/16/2020 HIV (1+2) Ab, rapid , unspe cifie d speci men Consent Yes Not Available In-Office Order Internal Use Only DO Not Attach Compendium DO Not Attach Compendium, Do Not Delete/merge, [id number] 02/15/2020 17:20:11 02/20/20 20 02/20/2020 HIV (1+2) Ab, rapid , unspe cifie d speci men Result negati ve Not Available In-Office Order Internal Use Only DO Not Attach Compendium DO Not Attach Compendium, Do Not Delete/merge, [id number] 02/15/2020 13:28:37 02/20/20 20 02/20/2020 HIV (1+2) Ab, rapid , unspe cifie d speci men Consent Yes Not Available In-Office Order Internal Use Only DO Not Attach Compendium DO Not Attach Compendium, Do Not Delete/merge, [id number] 02/15/2020 13:28:37 02/29/20 20 02/29/2020 HbA1c (hemo globi n A1c), blood HbA1c 5.2 Not Available In-Office Order Internal Use Only DO Not Attach Compendium DO Not Attach Compendium, Do Not Delete/merge, [id number] 02/15/2020 13:37:14 12/07/19 22 12/12/2021 NUSWA B VG+, HSV hsv 1 CASPER Negati ve negati ve Not Available [facility] ([facility]) [address] [place], [address], 12/13/2021 20:08:44 12/07/19 22 12/12/2021 NUA B VG+, HSV hsv 2 CASPER Negati ve negati ve Not Available [facility] ([facility]) [address] [facility], [place], [address], 12/13/2021 20:08:44 12/07/19 22 12/13/2021 NUA B VG+, HSV atopobium vaginae Low - 0 score Not Available [facility] ([facility]) [address] [place], [address], 12/13/2021 20:08:44 12/07/19 22 12/13/2021 NUSWA B VG+, HSV bvab 2 Low - 0 score Not Available [facility] ([facility]) [address] [place], [address], 12/13/2021 20:08:44 12/07/19 22 12/13/2021 NUSWA B VG+, HSV megasphaera 1 Low - 0 score Calcu late total score by jose alfredo martinez the 3 indiv idual bacte rial vagin osis (BV) marke r score s toget her. Total score is inter prete d as follo ws: Total score 0-1: Indic ates the absen ce of BV. Total score 2: Indet ermin ate for BV. Addit ional clini petra data shoul d be evalu ated to estab jaclyn a diagn osis. Total score 3-6: Indic ates the prese nce of BV. This test was devel oped and its perfo rmanc e stephen cteri stics deter mined by [facility]. It has not been clear ed or appro makenna by the Food and Drug Admin istra tion. Not Available [facility] ([facility]) [address] [facility], [place], [address], 12/13/2021 20:08:44 12/07/19 22 12/13/2021 NUA B VG+, HSV ani albicans, CASPER Negati ve negati ve Not Available [facility] ([facility]) [address] [facility], [place], [address], 12/13/2021 20:08:44 12/07/19 22 12/13/2021 NUSWA B VG+, HSV ani glabrata, CASPER Negati ve negati ve Not Available [facility] ([facility]) [address] [place], [address], 12/13/2021 20:08:44 12/07/19 22 12/13/2021 NUSWA B VG+, HSV trich vag by CASPER Negati ve negati ve Not Available [facility] ([facility]) [address] [place], [address], 12/13/2021 20:08:44 12/07/19 22 12/13/2021 NUSWA B VG+, HSV chlamydia trachomatis, CASPER Negati ve negati ve Not Available [facility] ([facility]) [address] [place], [address], 12/13/2021 20:08:44 12/07/19 22 12/13/2021 NUSWA B VG+, HSV neisseria gonorrhoeae, CASPER Negati ve negati ve Not Available [facility] ([facility]) [address] [place], [address], 12/13/2021 20:08:44 01/22/20 23 01/22/2023 HCV ANTIB MATT RFX TO QUANT PCR HCV Ab Non Reacti ve nonrea ctive Not Available [facility] ([facility]) [address] [place], [address], 01/23/2023 05:10:07 01/22/20 23 01/23/2023 CT, NG, TRICH VAG BY CASPER chlamydia by CASPER Negati ve negati ve Not Available [facility] ([facility]) [address] [place], [address], 01/23/2023 05:10:08 01/22/20 23 01/23/2023 CT, NG, TRICH VAG BY CASPER gonococcus by CASPER Negati ve negati ve Not Available [facility] ([facility]) [address] [place], [address], 01/23/2023 05:10:08 01/22/20 23 01/23/2023 CT, NG, TRICH VAG BY CASPER trich vag by CASPER Negati ve negati ve Not Available [facility] ([facility]) [address] [place], [address], 01/23/2023 05:10:08 01/22/20 23 01/22/2023 HBSAG SCREE N HBsAg screen Negati ve negati ve Not Available [facility] ([facility]) [address] [facility], [place], [address], 01/23/2023 05:10:09 01/22/20 23 01/22/2023 T PALLI DUM SCREE DAJUAN CASCA DE T pallidum antibodies Non Reacti ve nonrea ctive Not Available [facility] ([facility]) [address] [facility], [place], [address], 01/23/2023 05:10:09 01/22/2001/22/2023 HIV AB/P2 4 AG WITH REFLE X HIV Ab/P24 Ag screen Non Reacti ve nonrea ctive HIV Negat jarrell HIV-1 /HIV- 2 antib odies and HIV-1 p24 antig en were NOT detec saskia. There is no labor atory evide nce of HIV infec tion. Not Available [facility] ([facility]) [address] [facility], [place], [address], 01/23/2023 05:10:10 01/22/20 23 01/22/2023 INTER PRETA TION: interpretati on: Commen t Not infec saskia with HCV unles s early or acute infec tion is suspe cted (whic h may be delay ed in an immun ocomp romis ed indiv idual ), or other evide nce exist s to indic ate HCV infec tion. Not Available [facility] ([facility]) [address] [facility], [place], [address], 01/23/2023 05:10:07 11/20/19 19 11/19/2018 stres s echoc ardio gram No observ ation record ed. [facility] [address], [place], [address], 12/30/2018 23:54:55 09/21/19 21 09/21/2020 MAMMO , scree dajuan, bilat eral No observ ation record ed. [facility] ([facility]) [address] [place], [address], 09/24/2020 14:32:30 06/10/20 22 05/22/2022 trans -thor acic echoc ardio gram (TTE) (PROC ) No observ ation record ed. [facility] [address], [place], [address], 06/11/2022 10:28:46 Result Notes None recorded. Problems Name Problem SNOMED Code Status Onset Date Resolution Date Notes Provider Name and Address Organization Details Recorded Time Polycystic ovaries Active Yared [place], [place] [facility] 17:32:36 Depressive disorder 15156055 Active [place] [facility] 17:31:11 Obesity 599498739 Active [place] [facility] 17:32:36 Candidiasi s 11432337 Active [place]ared [place] [facility] 17:31:11 Blood in urine 61808260 Active [place] [facility] 17:31:11 Edema 909006388 Active Yared [place]vel[place] [facility] 17:31:11 Anemia 328865558 Active [place]ared [place] [facility] 17:31:11 Menorrhagi a 100250982 Active [place]ared [place] [facility] 17:31:11 Dysmenorrh ea 104312815 Active [place]ared [place] [facility] 17:31:11 Abnormal uterine bleeding 4552743361055 0 Active [place]ared [place] [facility] 17:32:36 Electrocar diogram abnormal 349260633 Active Yared [place] [facility] 17:31:11 Endometrit is 44420256 Active [place]ared [place] [facility] 6 17:31:11 Fibrocysti c disease of breast 98567067 Active 2016 Vonnie Morillo PA-C Attn: Accounting ,[address] [place], [address] , [facility] 7 13:16:44 Morbid obesity 496260774 Active 2016 Vonnie Morillo PA-C Attn: Accounting ,[address] [place], [address] , [facility] 7 13:17:25 Spasm of back muscles 152474980 Active 2017 Harlan Mendoza PA-C Attn: Accounting ,[address] [place], [address] , [facility] 8 11:26:34 Genital herpes simplex 45579710 Active 2018 Yared mata [facility] 9 07:51:41 Problem Notes None recorded. Procedures Surgical History Date Name Laterality Status Provider Name and Address Organization Details Recorded Time 10/04/19 17 robot assisted laparoscopic total hysterectomy completed Yared Evelin [facility] 12/30/2018 17:53:14 10/04/19 17 ROBOTIC ASSISTED BILATERAL SALPINGO OOPHORECTOMY (SURG) completed Yared Waters [facility] 10/13/2016 16:09:44 03/18/20 16 Dilation and Curettage completed Debbie Asher MA [facility] 04/02/2016 17:07:33 02/29/20 16 Date of Last Pap Smear completed Debbei Asher MA [facility] 02/29/2016 15:05:06 09/23/19 12 Caesarean Section completed Debbie Asher MA [facility] 02/29/2016 15:06:17 09/23/19 12 Tubal Ligation completed Debbie Asher MA [facility] 02/29/2016 15:06:17 07/27/19 07 Dilation and Curettage completed Debbie Asher MA [facility] 04/02/2016 17:07:43 06/04/20 04 Caesarean Section completed Debbie Asher MA [facility] 02/29/2016 15:06:01 11/06/19 03 Caesarean Section completed Debbie Asher MA [facility] 02/29/2016 15:05:51 Other completed Amara Shultz MA [facility] 01/31/2015 15:26:19 Other completed Amara Shultz MA [facility] 01/31/2015 15:26:19 Imaging Results None recorded. Procedure Notes None recorded. Medical Equipment None Reported. Allergies Allergen ID Allergen Name Allergen Category Reaction Reaction Severity Criticality Documentation Date Start Date Code Code System Note Provider Name and Address Organization Details Recorded Time 59720 codeine medicatio n rash severe Not available 01/31/2015 2670 RxNorm itchi ng Amara Shultz MA null, [facility] 5 15:27:13 Medications Name Sig Start Date Stop Date Status Note LastModified by Organization Details LastModified Time multivita min tablet Take 1 tablet every day by oral route. 2014 active Not Available Not Available Not Avai lable amoxicill in 500 mg capsule 12/30 completed Not Available Not Available Not Available hydrocodo ne 7.5 mg-ibupro fen 200 mg tablet 05/06 completed Not Available Not Available Not Available prednison e 10 mg tablet active Not Available Not Available Not Available gabapenti n 600 mg tablet 12/06 completed Not Available Not Available Not Available doxycycli ne hyclate 100 mg capsule active Not Available Not Available Not Available citalopra m 40 mg tablet Take 1 tablet every day by oral route. active Not Available Not Available No t Available azithromy lucy 250 mg tablet 05/06 completed Not Available Not Available Not Available ibuprofen 800 mg tablet TAKE 1 TABLET BY MOUTH THREE TIMES DAILY NEEDED FOR lumbar spasm 12/06 completed Not Available Not Available Not Available fluconazo le 150 mg tablet Take 1 tablet by oral route. active Not Available Not Available No t Available valacyclo vir 1 gram tablet TAKE ONE TABLET BY MOUTH EVERY DAY. FOR outbreak , TAKE ONE TABLET BY MOUTH TWICE DAILY FOR 7 DAYS active Not Available Not Available No t Available ranitidin e 300 mg tablet 05/06 completed Not Available Not Available Not Available hydrocodo ne 5 mg-acetam inophen 325 mg tablet Take 2 tablets every 6 hours by oral route. 05/06 completed Not Available Not Available Not Available Q-Dryl 25 mg capsule active Not Available Not Available Not Available sucralfat e 1 gram tablet 12/06 completed Not Available Not Available Not Available prednison e 20 mg tablet Take 2 tablets twice a day by oral route for 2 days. 12/06 completed Not Available Not Available Not Available spironola ctone 100 mg tablet active Not Available Not Available No t Available penicilli n V potassium 500 mg tablet Take 1 tablet twice a day by oral route for 10 days. active Not Available Not Available No t Available phentermi ne 37.5 mg tablet TAKE 1 TABLET BY MOUTH DAILY active Not Available Not Available No t Available sulfameth oxazole 800 mg-trimet hoprim 160 mg tablet 12/06 completed Not Available Not Available Not Available omeprazol e 40 mg capsule,d elayed release 12/06 completed Not Available Not Available Not Available tramadol 50 mg tablet Take 1 tablet twice a day by oral route. 12/06 completed Not Available Not Available Not Available bupropion HCl SR 100 mg tablet,12 hr sustained -release TAKE 1 TABLET BY MOUTH TWICE DAILY active Not Available Not Available No t Available acyclovir 800 mg tablet Take 1 tablet every day by oral route. 03/22 completed Valcyclo vir 1 Gram daily was ordered Not Available Not Available Not Available meloxicam 7.5 mg tablet active Not Available Not Available Not Available amoxicill in 875 mg tablet 05/06 completed Not Available Not Available Not Available alprazola m 0.25 mg tablet active Not Available Not Available Not Available baclofen 10 mg tablet Take 1 tablet 3 times a day by oral route as needed for 30 days. 12/06 completed Not Available Not Available Not Available benzonata te 100 mg capsule 12/30 completed Not Available Not Available Not Available cephalexi n 500 mg capsule Take 1 capsule every 6 hours by oral route as directed . 05/06 completed Not Available Not Available Not Available cyanocoba margoth (vit B-12) 1,000 mcg/mL injection solution 12/06 completed Not Available Not Available Not Available oseltamiv ir 75 mg capsule TAKE 1 CAPSULE BY MOUTH EVERY 12 HOURS FOR 5 DAYS 12/06 completed Not Available Not Available Not Available ferrous sulfate 325 mg (65 mg iron) tablet Take 1 tablet twice a day by oral route. 2014 active Not Available Not Available Not Avai lable metformin 1,000 mg tablet Take 1 tablet twice a day by oral route. 2014 active Not Available Not Available Not Avai lable bupropion HCl 75 mg tablet 12/06 completed Not Available Not Available Not Available sertralin e 25 mg tablet TAKE 1 TABLET BY MOUTH DAILY 12/06 completed Not Available Not Available Not Available omeprazol e 20 mg capsule,d elayed release TAKE 1 CAPSULE BY MOUTH DAILY 12/06 completed Not Available Not Available Not Available norethind sharon acetate 5 mg tablet Take 1 tablet every day by oral route. 05/06 completed Not Available Not Available Not Available ergocalci ferol (vitamin D2) 1,250 mcg (50,000 unit) capsule 12/06 completed Not Available Not Available Not Available ibuprofen 600 mg tablet 05/06 completed Not Available Not Available Not Available levofloxa lucy 500 mg tablet Take 1 tablet every 24 hours by oral route as directed for 7 days. 05/06 completed Not Available Not Available Not Available methylpre dnisolone 4 mg tablets in a dose pack 12/06 completed Not Available Not Available Not Available norethind sharon (contrace ptive) 0.35 mg tablet Take 1 tablet every day by oral route. 12/06 completed Not Available Not Available Not Available ondansetr on 4 mg disintegr ating tablet 12/06 completed Not Available Not Available Not Available fluticaso ne propionat e 50 mcg/actua tion nasal spray,aquiles pension 12/06 completed Not Available Not Available Not Available metformin ER 500 mg tablet,ex tended release 24 hr active Not Available Not Available Not Available BD Luer-Hermilo Syringe 3 mL 22 x 1 1/2 USE TO INJECT CYANOBAL BLACKWELL 12/06 completed Not Available Not Available Not Available dicyclomi ne 10 mg capsule Take 1 capsule 4 times a day by oral route as needed. 05/06 completed Not Available Not Available Not Available naproxen 500 mg tablet Take 1 tablet twice a day by oral route. 2015 active Not Available Not Available Not Avai lable amoxicill in 875 mg-potass ium clavulana te 125 mg tablet 12/30 completed Not Available Not Available Not Available Ventolin HFA 90 mcg/actua tion aerosol inhaler active Not Available Not Available Not Available oxycodone 5 mg tablet 12/06 completed Not Available Not Available Not Available Premarin 0.625 mg/gram vaginal cream insert 0.5 GRAM vaginall y EVERY DAY FOR FOURTEEN DAYS THEN twice WEEKLY active Not Available Not Available No t Available Premarin 0.625 mg tablet Take 1 tablet every day by oral route. 05/06 completed Not Available Not Available Not Available hydrocodo ne 7.5 mg-acetam inophen 325 mg/15 mL oral solution 12/06 completed Not Available Not Available Not Available Lupron Depot 11.25 mg (3 month) intramusc ular syringe kit Inject 1 kit every 3 months by intramus cular route. 05/06 completed Not Available Not Available Not Available nitrofura ntoin monohydra te/macroc rystals 100 mg capsule Take 1 capsule every 12 hours by oral route for 10 days. 12/06 completed Not Available Not Available Not Available lactulose 10 gram/15 mL oral solution Take 30 mL every day by oral route. 05/06 completed Not Available Not Available Not Available omeprazol e 20 mg tablet,de layed release 12/06 completed Not Available Not Available Not Available Viibryd 40 mg tablet Take 1 tablet every day by oral route. 2014 active samples dispense d Not Available Not Available Not Available Contrave 8 mg-90 mg tablet,ex tended release 2 PO BID 05/06 completed Not Available Not Available Not Available Lomaira 8 mg tablet TAKE 1 TABLET BY MOUTH DAILY IN THE AFTERNOO N active Not Available Not Available No t Available BinaxNOW COVID-19 Ag Self Test kit TEST DIRECTED TODAY active Not Available Not Available No t Available Vitals Date Recorded Body height Body mass index (BMI) Body weight Systolic And Diastolic Provider Name and Address Organization Details Last Updated DateTime 12/06/2021 165.1 cm 41.8 kg/m2 477287.12 g 126/72 mm[Hg] Elinor Rangel MA [facility] 12/06/2021 12:25:01 Date Recorded Body height Body mass index (BMI) Body weight Oxygen saturation Oxygen saturation in Arterial blood by Pulse oximetry Heart rate Body temperature Systolic And Diastolic Provider Name and Address Organization Details Last Updated DateTime 8 165.1 cm 60.7 kg/m2 316972. 81 g 97 % 97 % 75 /min 97.4 [degF] 120/74 mm[Hg] Elinor Rangel MA [facility] 8 11:19:45 Date Recorded Body height Body mass index (BMI) Body weight Provider Name and Address Organization Details Last Updated DateTime 12/30/2018 165.1 cm 41.6 kg/m2 463071.09 g August Land MA [facility] 12/30/2018 17:15:00 Date Recorded Body mass index (BMI) Body height Provider Name and Address Organization Details Last Updated DateTime 01/21/2023 42.3 kg/m2 165.1 cm RAISA GARCES Attn: [employer],[address] [place], [address], [facility] 01/21/2023 12:34:47 Date Recorded Body weight Systolic And Diastolic Provider Name and Address Organization Details Last Updated DateTime 01/21/2023 002129.46 g 118/78 mm[Hg] Lula Prater MA [facility] 01/21/2023 12:20:45 Date Recorded Body height Body mass index (BMI) Body weight Provider Name and Address Organization Details Last Updated DateTime 02/15/2020 165.1 cm 41.6 kg/m2 898045.09 g Yared Waters [facility] 02/15/2020 19:14:26 Social History Question Answer Notes LastModified by Organizat ion Details LastModified Time Tobacco Smoking Status Never Smoker JUAN C Fisher, [facility] 01/31/2015 15:26:19 Do You Have An Advance Directive? No Information not available 01/31/2015 Is Blood Transfusion Acceptable In An Emergency? Yes Information not available 01/31/2015 What Is Your Level Of Caffeine Consumption? Heavy Information not available 01/31/2015 How Much Tobacco Do You Chew? None Information not available 01/31/2015 What Type Of Diet Are You Following? REGULAR Information not available 01/31/2015 Which Illicit Or Recreational Drugs Have You Used? Denies [email or web address] Information not available 04/03/2016 Education 2 Year College Information not available 01/31/2015 Live Alone Or With Others? With Others Information not available 01/31/2015 What Was The Date Of Your Most Recent Tobacco Screening? 01/21/2023 Information not available 01/21/2023 How Many Children Do You Have? 3 Information not available 01/31/2015 Performs Monthly Self-breast Exam? Yes Information no t available 01/31/2015 Do You Use Protection During Sex? No Information not available 01/31/2015 What Is Your Relationship Status? Information not available 01/31/2015 Seat Belts Used Routinely Yes Information not available 01/31/2015 Are You Sexually Active? Yes Information not available 01/31/2015 Do You Have Smoke And Carbon Monoxide Detectors In Your Home? Yes Information not available 12/06/2021 Are You Passively Exposed To Smoke? No Information no t available 12/06/2021 How Much Tobacco Do You Smoke? No [email or web address] Information not available 04/03/2016 General Stress Level High Information not available 01/31/2015 Do You Use Sunscreen Routinely? Yes Information not available 01/31/2015 Has Tobacco Cessation Counseling Been Provided? No Information not available 12/06/2021 On What Date Was Tobacco Cessation Counseling Provided? 01/21/2023 Information not available 01/21/2023 How Many Years Have You Smoked Tobacco? 0 Information not available 04/03/2016 Sex: Unknown Functional Status Question Answer Note LastModified by Organizat ion Details LastModified Time Do you use any illicit or recreational drugs? No Information not available 12/06/2021 What is your level of alcohol consumption? Occasional Information not available 01/31/2015 Do you or have you ever used smokeless tobacco? Never used smokeless tobacco Information not available 08/10/2019 Are you currently employed? No Information not available 01/31/2015 Do you or have you ever used e-cigarettes or vape? Never used electronic cigarettes Information not available 08/10/2019 What is your exercise level? None Information not available 01/31/2015 Mental Status None recorded. Family History Relationship Description Onset Age of this Age Resolved Age Notes LastModified by Organization Details LastModified Time Maternal Grandmother Malignant neoplasm of breast [email or web address] Not available 04/22 17:31:05 Maternal Grandmother Malignant neoplasm of ovary [email or web address] Not available 04/22 17:31:05 Maternal Grandmother Malignant neoplasm of urinary bladder [email or web address] Not available 04/22 17:31:05 Maternal Grandmother Malignant neoplasm of skin [email or web address] Not available 04/22 17:31:05 Maternal Grandmother Malignant neoplasm of brain [email or web address] Not available 04/22 17:31:05 Medical History Condition Response Other Y High Blood Pressure N Breast Cancer N Blood Clots N Lung Disease N Breast Problem N Anesthesia Complications N Headaches/Migraines N Anxiety Disorder N Muscle, Joint, or Bone Problems Y Obesity Y Polyps N Infertility N Acid Reflux (GERD) N Cancer N Endometriosis N High Cholesterol N Liver Disease N Thyroid Problems N Kidney or Bladder Problems N GI Problems N Acne N Eating Disorder N Anemia N Diabetes N Ovarian Cancer N Blood Transfusions N Seizures/Epilepsy N Abuse/Domestic Violence N Asthma N Hepatitis N Heart Disease N Pre-Eclampsia N Osteoporosis N Gynecological History Statement/Question Response Flow Heavy Date of LMP STIs/STDs N HPV Vaccine N Age at Menarche 14 Current Control Method Hysterectom y Age at First Child 21 Sexually Active? Y Menses Monthly N Date of Last Pap Smear 02/29/2016 Sexual Problems? Y LMP Approximate Desired Control Method Hysterectom y Obstetrics History GPAL:G 4 P 3 0 1 3 Type Value Multiple Births 0 Full Term 3 Induced 0 Spontaneous 1 Premature 0 Living 3 Ectopics 0 Total 4 Immunizations Vaccine Type Date Status Note Provider Nam e and Address Organization Details Recorded Time COVID-19, mRNA, LNP-S, PF, 30 mcg/0.3 mL dose 10/27/2020 completed Elinor Rangel [place] null, [place] - [facility] 12/06/2021 14:13:10 COVID-19, mRNA, LNP-S, PF, 30 mcg/0.3 mL dose 11/21/2020 completed Elinor Rangel MA [place], [place] - [facility] 12/06/2021 14:13:31 Past Encounters Encounter ID Performer Location Encounter Start Date Encounter Closed Date Diagnosis/Indication Diagnosis SNOMED-CT Code Diagnosis ICD10 Code Diagnosis IMO Codes Diagnosis Note [id number] [facility] [address] [place] [id number] 0 01/31/2015 14:46:19 01/31/2015 16:05:00 Gynecologic examination 15855886 Depressive disorder 19603549 Obesity 451471340 Weight watchers papers faxed. Abdominal girth is 66 inches. [id number] Satinder Braxton MD [facility] [address] [place] [address] 02/20/2015 16:28:11 02/21/2015 09:03:38 Blood in urine [id number] [facility] [id number] Cal Schofield MD [facility] ([facility]) [address] [place] [id number] 0 02/29/2016 14:20:30 03/03/2016 12:07:42 Gynecologic examination 92607834 Z01.419 Abnormal u terine bleeding 4561735125 9100 N93.9 [id number] Cal Scohfield MD [facility] ([facility]) [address] [place] [id number] 0 04/02/2016 16:19:44 04/03/2016 14:14:01 Postoperative visit 117621610 Z09 Endometritis 25582780 N8 5.00 [id number] Cal Schofield MD [facility] ([facility]) [address] [place] [id number] 0 04/09/2016 14:55:10 04/10/2016 10:57:06 Postoperative visit 252657493 Z09 Endometritis 01426847 N8 5.00 Patient still complainin g of pain and vaginal bleeding despite completing all of Levaquin. I am concerned that the endometria l ablation has failed and she may require hysterecto my for definitive treatment. [id number] MD Sourav Dawn ([facility]) [address] [place] [address] [id number] 0 04/16/2016 15:34:15 04/18/2016 11:41:44 Menorrhagia 121680274 N92.0 [id number] [facility] [address] [place] [id number] 0 04/22/2016 16:23:12 04/22/2016 17:33:13 Abnormal uterine bleeding 1302146146 9100 N93.9 historical ly: diagnosed with PCOS, treated with metformin, pain analgesics , control oral contracept josemanuel, then surgical endometria l ablation without success Polycystic ovaries 05863 008 E28.2 Failed medical therapy Obesity 483362076 E66.9 Weight watchers papers faxed. Abdominal girth is 66 inches. Status post LAP BAND surgery [id number] MD Sourav Moeller ([facility]) [address] [place] [id number] 0 10/13/2016 14:48:46 10/16/2016 13:34:58 Obesity 679533619 E66.9 Weight watchers papers faxed. Abdominal girth is 66 inches. Status post LAP BAND surgery Postoperative visit 1836 78038 Z09 Post-hyste rectomy menopause 698318200 E89.41 [id number] MD Sourav Moeller ([facility]) [address] [place] [id number] 0 03/02/2017 13:21:24 03/02/2017 17:29:06 [id number] MD Sourav Moeller ([facility]) [address] [place] [address] [id number] 0 05/06/2017 16:14:25 05/07/2017 14:25:39 Obesity 044287579 E66.9 Weight watchers papers faxed. Abdominal girth is 66 inches. [id number] MD Sourav Lopez ([facility]) [address] [place] [address] [id number] 0 07/03/2017 12:54:37 07/06/2017 11:39:00 Family history of breast cancer 143463648 Z80.3 Fibrocysti c disease of breast 99352263 N60.11 N60.12 Based on family hx/o breast cancer will order diagnostic mammogram and breast US d/t history Morbid obesity 303905863 E66.01 Advised 30 minutes of exercise 5 days/week Advised to not drink her calories Advised 3 balanced meals/day with plenty of fruits and vegetables Advised to download i2we to track her calories [id number] MD Sourav Jaramillo (Adult Med) [address] [place] [id number] 0 12/30/2017 10:32:24 12/30/2017 11:36:53 Spasm of back muscles 262980705 M62.830 Obesity 331411038 E66.9 Depressive disorder 3548 9007 F32.89 [id number] MD Sourav Moeller ([facility]) [address] [place] [address] [id number] 0 12/30/2018 17:02:30 01/03/2019 10:23:22 Exposure to sexually transmissible disorder 572478241 Z20.2 Genital he rpes simplex 30805817 A60.9 Family loretta nning surveillance 066269074 Z30.09 robotic total hysterecto my with BS 10/03/2016 Morbid obesity 618874353 Z68.44 Atrophic vaginitis 83309 000 N95.2 Menopausal flushing 1984 69345 N95.1 [id number] MD Sourav Moeller ([facility]) [address] [place] [id number] 0 02/15/2020 16:19:26 02/16/2020 08:22:00 HIV screening 695813189 Z11.4 Diabetes m ellitus screening 767425471 Z13.1 [id number] RAISA GARCES ([facility]) [address] [place] [id number] 0 12/06/2021 12:10:04 12/11/2021 09:23:33 Gynecologic examination 82058732 Z01.411 41 y/o female with hx of hysterecto my and bilateral salpingo-o ophorectom y presents today with post-coita l vaginal bleeding and dyspareuni a. Examinatio n today shows ulceration at the introitus, suspect active herpes outbreak. Postcoital bleeding 4888 0000 N93.0 Not actively bleeding on speculum exam, no blood in vaginal vault. Discussed that symptoms likely due to atrophy and active HSV, and encouraged use of lubricants w/ intercours e. Also provided w/ premarin prescripti on. Atrophic vaginitis 95537 000 N95.2 Will start Premarin for pt, and encouraged continued use of water-base d lubricants w/ intercours e. Genital he rpes simplex 15914572 A60.9 Ulceration on exam consistent with active herpes outbreak. Advised pt to take 1g Valtrex BID x1 week for active infection, then continue with QD therapy. Encouraged new sexual partner to be tested if he presents with symptoms, also encouraged abstinence during outbreaks and condom use to prevent transmissi on. Venereal d isease screening 347201058 Z11.3 Pt has a new sexual partner and would like screening today, nuswab obtained. Safe sex practices discussed. [id number] RAISA GARCES ([facility]) [address] [place] [id number] 0 01/21/2023 12:12:45 01/21/2023 15:37:09 Gynecologic examination 29398994 Z01.419 Cervical cancer screening: s/p TLH 2016 due to menorrhagi a, pap no longer indicated at this timeBreast cancer screening: Reviewed recommenda tions for initiation at age 40 with annual screening. Discussed SBEColonos copy: start screening at age 47Contrace ption: s/p TLHDiet/ex ercise: Counseled regarding importance of physical activity, healthy diet and appropriat e calcium intake.RTC in 1yr Screening for malignant neoplasm of breast 218427870 Z12.31 Annual screening order provided Obesity 712111198 E66.9 per BMI 42 Venereal d isease screening 293230401 Z11.3 Pt requests full STI screening today. Safe sex practices discussed. Health Concerns Section Related Observation LastModified by Organization Detai ls LastModified Time None Recorded Concern Status LastModified by Organization Details LastModified Time None Recorded Advance Directives Directive N: Payers Insurance Date Sequence Insurance Name Policy Number Policy Deal Covered Member ID Deal Member ID Guarantor Name 06/06/2024 1 [facility] (MEDICAID HMO) Becky Mcgee [id number] Becky Mcintyre 06/06/2024 2 [place] [facility] Becky Mcintyre [id number] Becky Mcintyre 06/06/2024 1 [facility] PRIOR TO 01/24/2021 (MEDICAID REPLACEMENT - HMO) Becky Mcgee [id number] Becky Mcintyre 06/06/2024 1 [facility] (HMO) [id number] Becky Mcintyre [id number] Becky Mcintyre 06/06/2024 1 [place] Becky Mcintyre [id number] Becky Mcintyre 06/06/2024 1 [facility] (MEDICARE REPLACEMENT/AD VANTAGE - HMO) [id number] Becky Mcintyre [id number] Becky Mcintyre 06/06/2024 1 [facility] PRIOR TO 01/24/2021 (MEDICAID REPLACEMENT - HMO) Becyk Mcgee [id number] Becky Mcintyre 06/06/2024 2 [place] [facility] Becky Mcintyre [id number] Becky Mcintyre Notes Date Note Type Note Provider Name and Address Organization Details Recorded Time 8 text/html ROS as noted in the HPI went to chiropractor , took one muscle relaxant pill .......no straining , but does sit on edge of chair at work all day with no back support ..... Harlan Mendoza PA-C Attn: [address] [place], [address], [facility] 12/30/2017 17:09:19 9 text/html Sexually Transmitted InfectionReported by PatientHPIFor location, patient reportsvulva. For quality, patient reportspainful. For onset/timing, patient reportslast few days. For context, patient reportslast sexual activity: (12/25/18)andlast sexual partner: male partner.ROS as noted in the HPI 38 y/o F with history of obesity, dysmenorrhea, fibrocystic disease of the breast, depression, menorrhagia, abnormal uterine bleeding, PCOS, endometritis and post total hysterectomy presents today with concerns for STD with painful lesions and white discharge. Also c/o hot flashes, and dry vaginal mucosa. Yared Waters null, [place] - [facility] 12/31/2018 18:32:38 0 text/html ROS as noted in the [facility] blood work Lula JUAN C Prater null, [place] - [facility] 02/16/2020 09:19:16 2 text/html ROS as noted in the HPI 41 y/o female with hx of hysterectomy and bilateral salpingo-oophorectomy presents today for evaluation of postcoital vaginal bleeding that has been occurring daily for the past 6 days, with associated dyspareunia. She has a new boyfriend that she had intercourse with and noticed the symptoms. She has had similar prior episodes, but not in several months. She states she has issues with vaginal dryness, and uses water-based lubricants for this. She states she has genital herpes, has not had an outbreak since 2018. Takes her medication daily for suppression. Her current boyfriend is concerned about transmission, after they didn't use protection. She denies current genital or oral sores on her or her partner. RAISA GARCES Attn: Accounting,[address] [place], [address], [facility] 12/10/2021 14:00:26 3 text/html Annual GYNReported by PatientGenitourinary symptomsFor urinary symptoms, patient reportsno hematuriaandno incontinence. For vulva, patient reportsno genital lesion. For vagina, patient reportsnormal vaginal discharge.Breast symptomsFor breast, patient reportsno breast pain,no breast lump, andno nipple discharge.ContraceptionFo r current contraception, patient reportsrequests testing for sexually transmitted infections(hysterectomy). Endocrine symptomsFor sexual complaints, patient reportsno sexual complaints,no pain during intercourse, andnormal libido. For menopausal symptoms, patient reportsno menopausal symptoms.Psychological symptomsFor psychological symptoms, patient reportsno depressionandno anxiety.Preventative measuresFor preventive measures, patient reportsencourage self breast examination,encourage regular exercise,encourage no tobacco use,encourage regular mammograms starting age 40, andneeds to schedule mammogram.ROS as noted in the HPI 42 y/o F with hx of hysterectomy and bilateral salpingo-oophorectomy presents for annual gynecology visit. Patient wishes to have a full STI/STD panel completed at this time. She notes a couple weeks ago she was having increased urinary urgency, took an OTC UTI medication which resolved her symptoms. Patient also reports intermittent vaginal dryness, but nothing that bothers her. She denies breast changes, hot flashes, vaginal bleeding, or vaginal discharge. Patient notes she has had 2 prior mammograms due to family history of breast CA in her grandmother. RAISA GARCES Attn: Accounting[address] [place], [address], [facility] 01/22/2023 13:53:47 OBGyn Episode No OBEpisode recorded.
--- OUTSIDE RECORDS SUMMARY | 2025-05-06 20:30 | XMS_ITS | Clinical Summary ---
Author Organization [employer] [address] Address [address] [place] [address] Care Team Providers Care Supervisor Lathing Name Role Phone Unavailable Primary Care Provider Unavailabl e Allergies Active Allergy Reactions Criticality Noted Date Comments Adhesive Tape-Silicones Rash High 03/17/2018 Codeine Itching High 03/14/2016 Medications valacyclovir HCl (VALTREX ORAL) Take by mouth. Active multivitamin (MULTIPLE VITAMIN ORAL) Take by mouth. Active Active Problems Problem Noted Date Diagnosed Date Morbid obesity with body mass index of 40.0-49.9 03/31/2022 Social History Tobacco Use Types Packs/Day Years Used Date Smoking Tobacco: Former Cigarettes 0 Smokeless Tobacco: Never Tobacco Cessation:Ready to Q uit: Yes; Counseling Given: No Alcohol Use Standard Drinks/Week Comments Not Currently 0 (1 standard drink = 0.6 oz pur e alcohol) Comments No Sex and Gender Information Value Date Recorded Sex Assigned at Not on file Legal Sex Female 10:13 AM CDT Gender Identity Not on file Sexual Orientation Not on file Last Filed Vital Signs Vital Sign Reading Time Taken Comments Blood Pressure 100/70 11/18/2021 4:04 PM CDT Pulse 63 11/18/2021 4:04 PM CDT Temperature 36.6 C (97.9 F) 11/18/2021 4:04 PM CDT Respiratory Rate 14 03/24/2019 10:25 AM CDT Oxygen Saturation 96% 11/18/2021 4:04 PM CDT Inhaled Oxygen Concentration - - Weight 117.6 kg (259 lb 4 oz) 11/18/2021 4:04 PM CDT Height 165.1 cm (5' 5) 11/18/2021 4:04 PM CDT Body Mass Index 43.14 11/18/2021 4:04 PM CDT Plan of Treatment Health Maintenance Due Date Last Done Comments Pre-Diabetes and Diabetes Screening 1980 DTAP/TDAP/TD VACCINES (1 - Tdap) 2001 HEPATITIS B VACCINES (1 of 3 - 19+ 3-dose series) 08/27 HPV VACCINES (1 - 3-dose SCDM series) 2009 BREAST CANCER SCREENING 2022 INFLUENZA VACCINE (#1) 2025 Insurance [place]ICAID [place]
--- OUTSIDE RECORDS SUMMARY | 2025-05-06 20:30 | XMS_ITS | Clinical Summary ---
Author Organization [facility] Address [address] [place] [address] Care Team Providers Care Auto Body Repairer Name Role Phone Washington Asher DO Primary Care Provider [phone] Source Comments [facility],non-owned Affiliates and Associated Physician Practices is amultiple site organization consisting of ambulatory clinics and hospital sitesin [place], [place], [place] and [place]. This disclosure is being madepursuant to the Care Everywhere program and may not contain all information available regarding this patient. Last updated 18.[facility] Allergies Active Allergy Reactions Criticality Noted Date Comments Adhesive Sensitivity Urticaria,Rash High 03/17/2018 Codeine Itching Medium 03/12/2017 Codeine Itching Low 04/26/2019 Medications * Be aware that medications may not be up to date on this document. Alwaysverify current medications with the patient. polyethylene glycol 3350 (MIRALAX) powder Take 17 g by mouth once daily Active norethindrone (ORTHO MICRONOR; NOR-QD; CLEM; LORAINE; MARANDA-BE; MIRTHA; JOLIVETTE) 0.35 MG tablet Take 1 tablet by mouth every 24 hours Active acyclovir (ZOVIRAX) 800 MG tablet Take 1 (one) tablet by mouth 2 times daily 03/19/2019 Active Multiple Vitamin (MULTI-VITAMIN DAILY PO) Active valACYclovir HCl (VALTREX PO) Take by mouth once daily Active Cyanocobalamin (VITAMIN B 12 PO) Take 1 tablet by mouth once daily Active HYDROcodone-acet aminophen ([place]) 5-325 MG tablet Take 1 (one) tablet by mouth every 6 hours as needed Active Active Problems Problem Noted Date Diagnosed Date Dysphagia 05/08/2018 Dizziness 12/08/2017 Preop examination Resolved Problems Problem Noted Date Diagnosed Date Resolved Date Dehydration 05/08/2018 05/22/2018 Dehydration 12/08/2017 12/22/2017 Morbid obesity due to excess calories 12/02/2017 08/10/2019 Family History Medical History Relation Name Comments Cancer - Other Maternal Grandmother skin cancer, ovarian ca, bladder ca, kidney ca Other Mother hypercholestero lemia Cancer - Bladder Paternal Grandmother Cancer - Other Paternal Grandmother Relation Name Status Comments Father Alive Maternal Grandfather Alive Maternal Grandmother Alive Mother Alive Paternal Grandfather Alive Paternal Grandmother Sister Alive Social History Tobacco Use Types Packs/Day Years Used Date Smoking Tobacco: Former Cigarettes 0.1 20 0 02/1997 - 02/2017 Smokeless Tobacco: Never Tobacco Cessation:Counseling Given: Not Answered Alcohol Use Standard Drinks/Week Comments Not Currently 0 (1 standard drink = 0.6 oz pur e alcohol) occassionally PHQ-2 Answer Date Recorded Patient Health Questionnaire-2 Score 0 10/22/2023 Comments No Sex and Gender Information Value Date Recorded Sex Assigned at Not on file 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 Gender Identity Not on file Sexual Orientation Not on file Last Filed Vital Signs Vital Sign Reading Time Taken Comments Blood Pressure 103/67 02/21/2020 2:45 PM CDT Pulse 66 02/21/2020 2:45 PM CDT Temperature 36.5 C (97.7 F) 02/21/2020 2:28 PM CDT Respiratory Rate 20 02/21/2020 2:45 PM CDT Oxygen Saturation 100% 02/21/2020 2:45 PM CDT Inhaled Oxygen Concentration 21% 05/09/2018 7 :18 AM CDT Weight 102.1 kg (225 lb) 10/22/2023 1:39 PM CDT Height 165.1 cm (5' 5) 10/22/2023 1:39 PM CDT Body Mass Index 37.44 10/22/2023 1:39 PM CDT Plan of Treatment Health Maintenance Due Date Last Done Comments MAMMOGRAM 1982 HIV SCREENING 1997 DTAP/TDAP/TD VACCINES (1 - Tdap) 2001 HEPATITIS B VACCINE (1 of 3 - 19+ 3-dose series) 2001 HPV VACCINE (1 - 3-dose SCDM series) 2009 SCREENING FOR DIABETES 10/22/2023 , 03/25/2019, 10/17/2018, Additional history exists DEPRESSION SCREENING 07/27/2024 10/22/2023 COVID-19 VACCINE ( season) 2025 11/21/2020, 10/27/2020 INFLUENZA VACCINE (#1) 2025 LIPID TESTING 12/10/2028 12/11/2023, 03/2020, 08/06/2018 ZOSTER VACCINE (1 of 2) 2032 HEPATITIS C SCREENING Completed 12/11/2023 HIB VACCINE Aged Out No longer eligi ble based on patient's age to complete this topic MENINGOCOCCAL (Group B) VACCINE SHARED DECISION-MAKING Aged Out No longer eligible based on patient's age to complete this topic MENINGOCOCCAL GROUPS A/C/Y/W VACCINE Aged Out No longer eligible based on patient's age to complete this topic PNEUMOCOCCAL VACCINE Aged Out No long er eligible based on patient's age to complete this topic Procedures Procedure Name Priority Date/Time Associated Diagnosis Comments COMPREHENSIVE METABOLIC PANEL Routine 08/04/2019 3:45 PM TRANSPLANTER Class 2 obesity due to excess calories without serious comorbidity with body mass index (BMI) of 35.0 to 35.9 in adult S/P gastric bypass LIPID PROFILE Routine 08/04/2019 3:45 PM TRANSPLANTER Class 2 obesity due to excess calories without serious comorbidity with body mass index (BMI) of 35.0 to 35.9 in adult S/P gastric bypass from Last 3 Months or Most Recently Relevant to Health Maintenance Results * COMPREHENSIVE METABOLIC PANEL (08/04/2019 3:45 PM TRANSPLANTER) [facility] Glucose 86 70 - 125 mg/dL 08/04/2019 4:27 PM [facility] Sodium 141 136 - 145 mmol/L 08/04/2019 4:27 PM [facility] Potassium 4.1 3.4 - 4.5 mmol/L 08/04/2019 4:27 PM [facility] Chloride 107 98 - 107 mmol/L 08/04/2019 4:27 PM [facility] CO2 25 22 - 29 mmol/L 08/04/2019 4:27 PM [facility] Calcium 9.1 8.4 - 10.2 mg/dL 08/04/2019 4:27 PM [facility] Anion Gap 13 10 - 20 mmol/L 08/04/2019 4:27 PM [facility] BUN 19.7 9.8 - 20.1 mg/dL 08/04/2019 4:27 PM [facility] Creatinine 0.80 0.57 - 1.11 mg/dL 08/04/2019 4:27 PM [facility] eGFR by MDRD >60 >60 mL/min/1.7 3m2 08/04/2019 4:27 PM [facility] eGFR by MDRD >60 >60 mL/min/1.7 3m2 08/04/2019 4:27 PM [facility] Alkaline Phosphatase 102 40 - 150 U/L 08/04/2019 4:27 PM [facility] ALT 23 5 - 55 U/L 08/04/2019 4:27 PM [facility] AST 23 5 - 34 U/L 08/04/2019 4:27 PM [facility] Protein Total 6.7 6.4 - 8.3 gm/dL 08/04/2019 4:27 PM [facility] Albumin 3.6 3.5 - 5.0 gm/dL 08/04/2019 4:27 PM [facility] Globulin Total 3.1 2.6 - 4.0 gm/dL 08/04/2019 4:27 PM [facility] Albumin/Globulin Ratio 1.2 0.9 - 1.6 08/04/2019 4:27 PM [facility] Bilirubin Total 0.4 0.2 - 1.2 mg/dL 08/04/2019 4:27 PM [facility] Blood BLOOD SPECIMEN / Unknown Lab Venipuncture / Unknown 08/04/2019 3:45 PM TRANSPLANTER 08/04/2019 3:54 PM [facility] us Milka Chowdhury PARIMUTUEL CASHIER-DOOR SERVICEMAN LAB - CHEMISTRY ORDERABL ES Final Result [facility] [address] [place] [address], [facility] * LIPID PROFILE (08/04/2019 3:45 PM [facility]) Cholesterol 142 <200 mg/dL 08/04/2019 4:27 PM [facility] Triglycerides 120 <150 mg/dL 08/04/2019 4:27 PM [facility] HDL Cholesterol 42 >40 mg/dL 0 4:27 PM [facility] Chol HDL Ratio 3.4 1.0 - 6.0 08/04/2019 4:27 PM [facility] LDL Calculated 76 65 - 130 mg/dL 08/04/2019 4:27 PM [facility] VLDL Calculated 24 10 - 40 mg/dL 08/04/2019 4:27 PM [facility] Blood BLOOD SPECIMEN / Unknown Lab Venipuncture / Unknown 08/04/2019 3:45 PM [facility] 08/04/2019 3:54 PM [facility] - 08/04/2019 4:27 PM [facility] Lipid Profile Comment: CHOLESTEROL LEVEL..................CLINICAL INTERPRETATION LESS THAN 200 MG/DL..............................DESIRABLE 200-239 MG/DL..............................BORDERLINE HIGH GREATER THAN 240 MG/DL................................HIGH LDL-CHOLESTEROL LEVEL..............CLINICAL INTERPRETATION LESS THAN 100 MG/DL................................OPTIMAL 100-129 MG/DL.................................NEAR OPTIMAL GREATER THAN 160 MG/DL...........................HIGH RISK HDL RISK LEVEL GREATER THEN 60 MG/DL............................DECREASED 40-60 MG/DL........................................AVERAGE LESS THAN 40 MG/DL...............................INCREASED TRIGLYCERIDE LEVEL..................CLINICAL INTERPRETATION LESS THAN 150 MG/DL...............................DESIRABLE 150-199 MG/DL...............................BORDERLINE HIGH 200-499 MG/DL..........................................HIGH GREATER THAN 500..................................VERY HIGH THE NATIONAL CHOLESTEROL EDUCATION PROGRAM HAS SET THE ABOVE GUIDELINES (REFERANCE VALUES) FOR CHOLESTEROL AND HDL. RISK ASSOCIATED WITH CHOLESTEROL/HDL RATIOS RISK....................MALE RATIO.............FEMALE RATIO 1/2 AVERAGE.................<3.4.......................<3.3 LOW RISK.................... 4.0 ...................... 3.8 AVERAGE..................... 5.0 ...................... 4.5 2X AVERAGE.................. 9.5 ...................... 7.0 3X AVERAGE...................>23........................>11 Milka Chowdhury PARIMUTUEL CASHIER-DOOR SERVICEMAN LAB - CHEMISTRY ORDERABL ES Final Result [facility] [address] [place] [address], [facility] from Last 3 Months or Most Recently Relevant to Health Maintenance Insurance * Guarantor: ADONAY MOSER Account Type Relation to Patient Date of Phone Billing Address Personal/Family [id number] Advance Directives * Full Code (Latest Code Status on File) Date Activated Date Inactivated Comments 05/09/2018 10:48 AM 05/09/2018 2:21 PM * Full Code Date Activated Date Inactivated Comments 05/08/2018 9:51 PM 05/09/2018 10:48 AM * Full Code Date Activated Date Inactivated Comments 03/24/2018 8:20 PM 03/25/2018 7:08 PM * Full Code Date Activated Date Inactivated Comments 12/08/2017 2:12 PM 12/08/2017 7:38 PM * Full Code Date Activated Date Inactivated Comments 12/08/2017 1:43 PM 12/08/2017 2:12 PM Care Teams Auto Body Repairer Relationship Specialty Start Date End Date Washington Asher DO PCP - General Internal Medicine 08/09/21
--- OUTSIDE RECORDS SUMMARY | 2025-05-06 20:30 | XMS_ITS | Encounter Summary ---
Author Organization [facility] Address [facility] [place] [address] Care Team Providers Care Police Justice Name Role Phone Nay Rios MD Primary Care Provider + [phone] Nay Rios MD Primary Care Provider + [phone] Yared Waters MD Primary Care Provider + [phone] Yared Waters MD Primary Care Provider + [phone] Washington Asher DO Primary Care Provider [phone] Zoë Russ FLAME HARDENING MACHINE SETTER-FORCER MAKER Unavailable Reason for Visit * Reason Onset Date Comments Follow-up 05/18/2017 Encounter Details Date Type Department Care Team (Late st Contact Info) Description 05/18/2017 Telephone [facility] [address] 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 1 juice weigher visit complete. Cardiac clearance complete. Ct of abd that doctor approved as well as a cxr in 2016. EKG requested from dr lama office. [facility] Remaining labs vit A,E,K requested from [facility] to have all labs complete. No PCP visits required per life insurance salesperson Viri. Tammy Anders LPN 05/18/2017 10:03 AM documented in this encounter Plan of Treatment Not on file documented as of this encounter Visit Diagnoses Not on filedocumented in this encounter Care Teams Police Justice Relationship Specialty Start Date End Date Nay Rios MD [address] [place] [id number] PCP - General Family Medicine 08/10/17 08/24/17 Nay Rios MD [address] [place] [phone] PCP - General Family Medicine 08/25/17 08/25/17 Yared Waters MD [address] [place] [phone] PCP - General Obstetrics and Gynecology 11/05/17 04/26/18 Yared Waters MD [address] [place] [phone] PCP - General 11/17/18 08/08/21 Washington Asher DO [address] [place] [phone] PCP - General Internal Medicine 08/09/21 Zoë Russ, DEMARCUS-FORCER MAKER [address] [place] [address] PCP - Attributed-[employer] [place] 05/27/23 10/12/23 documented as of this encounter
--- NOTE | 2025-05-06 20:32 | ECG_ITS ---
Test Date: 2025-05-06 20:53:28 Measurements Intervals Williams Rate: 61 P: 32 [place]: 196 QRS: 4 QRSD: 107 T: 30 QT: 426 QTc: 431 Interpretive Statements SINUS RHYTHM INCOMPLETE RIGHT BUNDLE BRANCH BLOCK BORDERLINE ECG No previous ECG available for comparison Electronically Signed On 05-07-2025 07:41:51 CDT by Kevin Wall D.O.
[2025-05-06 20:34] VITALS: BP 152/95; PULSE 70; RESP 18; TEMP 36.7; O2SAT 97; O2SAT 99
--- NOTE | 2025-05-06 20:44 | ED_ITS ---
HPI - Chest Pain General Chief Complaint: Chest Pain Stated Complaint: CHEST PAIN Time Seen by Provider: 05/06/25 20:33 History of Present Illness HPI narrative: Patient is a 44-year-old female who presents to the ER with chest palpitations, left arm numbness, pain up into her left neck, and pain in her left biceps. She reports her symptoms started yesterday but worsened today. Patient reports she has never experiencing the left arm and neck pain/numbness. She endorses a history of palpitation and multiple surgeries. Patient denies any injury to her left arm, recent fevers, sore throat, or headache. She does endorse a cough for the past 2 weeks. Related Data Home Medications ?Medication ?Instructions ?Recorded ?Confirmed ?Last Taken ?Type valacyclovir 1 gram tablet 06/26/20 03/25/23 Unknown History [id number] carb-vit K 1 tablet PO DAILY 0 01/14/21 03/25/23 Unknown History 18 mg iron-400 mcg-500 mg tablet (Women's Multivitamin) Allergies Allergy/AdvReac Type Severity Reaction Status Date / Time codeine Allergy Mild Rash Verified 03/25/23 14:41 Review of Systems 2 Review of Systems: All systems reviewed & are unremarkable except as noted in HPI and below PMFSH Past Medical History Medical History GERD (gastroesophageal reflux disease) HSV-2 (herpes simplex virus 2) infection Surgical History Surgical History H/O: hysterectomy History of tonsillectomy and adenoidectomy H/O gastric bypass H/O dilation and curettage History of cholecystectomy H/O section x3 Family History Family History Grandparent Cancer Kidney problem Social History Social History Smoking status: Never smoker Lack of Transportation: No Lack of Food: Sometimes True Current Housing: I Have Housing Concerned About Future Housing: No Difficulty Paying Gas/Electric Bills: YES Difficulty Paying for Meds: No Currently Unemployed: No Education: Trade/Vocational Certificate Difficulty w/ Childcare or Family Care: No Gender identity (if verbalized by the patient): Female Exam 2 Narrative: GENERAL: Well appearing, obese, non-toxic, in no acute distress. HEAD: Normocephalic, atraumatic. NECK: Supple. No adenopathy, no masses. RESPIRATORY: Airway patent, respirations nonlabored. Clear to auscultation bilaterally, no rales, rhonchi, wheezing. CARDIOVASCULAR: Regular rate and rhythm without murmurs, rubs, or gallops. Peripheral pulses 2+ and equal bilaterally. ABDOMINAL: Soft, nontender, nondistended, no hepatosplenomegaly. Normoactive BS. MUSCULOSKELETAL: Moves all extremities. Strength/ROM intact without gross deformities. SKIN: Warm, dry, normal color. No rashes. No visible bruising to L bicep where pt idenitifies pain NEURO: A&O X3. Speech clear. Cranial nerves II-XII intact. No ataxic movements. PSYCHIATRIC: Appropriate mood and affect. Normal interaction. Course Vital Signs Vital signs: Vital Signs Temperature 36.7 C 05/06/25 20:34 Pulse Rate 70 05/06/25 20:34 Respiratory Rate 18 05/06/25 20:34 Blood Pressure 152/95 H 05/06/25 20:34 Pulse Oximetry 97 05/06/25 20:34 Oxygen Delivery Room Air 05/06/25 20:34 Temperature 36.7 C 05/06/25 20:34 Pulse Rate 70 05/06/25 20:34 Respiratory Rate 18 05/06/25 20:34 Blood Pressure 152/95 H 05/06/25 20:34 Pulse Oximetry 99 05/06/25 20:34 Oxygen Delivery Room Air 05/06/25 20:34 MDM - Chest Pain MDM Narrative Medical decision making narrative: Patient is a 44-year-old female who presents to the ER with chest palpitations, left arm numbness, pain up into her left neck, and pain in her left biceps. She reports her symptoms started yesterday but worsened today. Patient reports she has never experiencing the left arm and neck pain/numbness. She endorses a history of palpitation and multiple surgeries. Patient denies any injury to her left arm, recent fevers, sore throat, or headache. She does endorse a cough for the past 2 weeks. Labs Ordered: CBC, CMP, troponin, pro BNP, TSH, PTT, INR, D-dimer, lipase Imaging Ordered: Chest x-ray Medications Ordered: Benadryl p.o., morphine 2 mg IV, Toradol 15 mg IV Results: Patient's blood work was all reassuring and there were no acute abnormalities to explain patient's symptoms. Her chest x-ray indicates no acute cardiopulmonary abnormalities. Diagnosis: Atypical chest pain, heart palpitations, L bicep pain, L arm numbness and tingling Risks: HEART score: low risk HEART Score for Major Cardiac Events from [facility] on 05/07/2025 All calculations should be rechecked by clinician prior to use RESULT SUMMARY: 2 points Low Score (0-3 points) Risk of MACE of 0.9-1.7%. INPUTS: History ?> 1 = Moderately suspicious EKG ?> 0 = Normal Age ?> 0 = <45 Risk factors ?> 1 = 1-2 risk factors Initial troponin ?> 0 = <Normal limit Consults: cardiology (outpatient), pt already has established care Patient Education/Shared MDM: Results of lab work and imaging shared with patient. She endorses improvement of symptoms following medication administration. Patient strongly advised to maintain hydration status upon discharge and follow-up with her visitor services specialist as soon as possible. She will be discharged home with a prescription for Lidocaine patches and muscle relaxants to treat her bicep/L arm pain. Strict return precautions provided. Patient verbalized understanding and is in agreement with plan. Vital signs stable at time of discharge. All questions answered. Differential Diagnosis Differential diagnosis: Likely atypical chest pain, st elevation myocardial infarction, costochondritis, chest pain and other (pneumonia) Lab Data Attestation: I reviewed the patient's lab results. 05/06/25 21:10 05/06/25 21:10 Labs: Lab Results 05/06/25 05/07/25 Range/Units 21:10 00:06 WBC 7.0 (4.5-10.0) K/mm3 RBC 4.24 (4.2-5.4) M/mm3 Hgb 11.9 L (12.0-15.0) g/dL Hct 36.6 L (37.0-47.0) % MCV 86.3 (80-100) fl MCH 28.1 (26-34) pg MCHC 32.5 (32-36) g/dl RDW 13.2 (11.5-14.5) % Plt Count 213 (150-375) k/mm3 MPV 8.7 (7.4-10.4) fl Immature Gran % (Auto) 0.1 (0-0.5) % Neut % (Auto) 53.9 (45.5-73.1) % Lymph % (Auto) 35.5 (18.3-44.2) % [place] % (Auto) 8.7 H (2.6-8.5) % Eos % (Auto) 1.7 (0-4.4) % Baso % (Auto) 0.1 L (0.2-1.2) % Lymph # (Auto) 2.48 (0.9-3.2) K/mm3 [place] # (Auto) 0.6 (0.1-0.6) K/mm3 Eos # (Auto) 0.1 (0-0.3) K/mm3 Baso # (Auto) 0.0 (0.0-0.1) K/mm3 Abs Immat Gran (auto) 0.01 (0.00-0.031) K/mm3 Absolute Neuts (auto) 3.8 (1.3-6.7) K/mm3 Absolute Nucleated RBC 0.000 (0.0-0.012) K/mm3 Nucleated RBC % 0.0 (0.0-0.2) % PT 12.6 (11.1-14.7) Seconds INR 0.9 APTT 30.1 (22.3-36.8) Seconds D-Dimer 0.42 (<0.48) ug/mL Sodium 138 (137-145) mmol/L Potassium 3.6 (3.4-5.0) mmol/L Chloride 105 (98-107) mmol/L Carbon Dioxide 27 (22-30) mmol/L Anion Gap 6 (4-12) mmol/L BUN 20 H (7-17) mg/dL Creatinine 0.87 (0.7-1.0) mg/dL Estim Creat Clear Calc 99 ml/min Estimated GFR > 60 (59 - ) Glucose 84 (65-110) mg/dL Calcium 8.8 (8.4-10.2) mg/dL Total Bilirubin 0.3 (0.2-1.3) mg/dL AST 32 (14-36) U/L ALT 24 (6-35) U/L Alkaline Phosphatase 114 (38-126) U/L Troponin I < 0.012 < 0.012 (0.000-0.034) ng/mL NT-Pro-B Natriuret Pep 96 (19.9-100) pg/mL Total Protein 7.1 (6.3-8.2) g/dL Albumin 4.0 (3.5-5.1) g/dL Lipase 59 (23-300) U/L TSH 1.950 (0.465-4.680) uIU/mL Imaging Data Attestation: I personally reviewed and interpreted this imaging study as follows: Radiologist's impression: Her chest x-ray indicates no acute cardiopulmonary abnormalities. ECG Data EKG #1: Attestation: I personally reviewed and interpreted this ECG as follows: ECG completion date: 05/07/25 ECG completion time: 21:00 Prior ECG tracings: available for review EKG Interpretation: normal rate, sinus rhythm and no ST changes Discharge Plan Discharge Clinical Impression: Atypical chest pain, Palpitations, Numbness and tingling of left upper extremity, Non-cardiac chest pain, Biceps strain Patient Disposition: Home Condition: Stable Instructions: Antibiotic Form, Noncardiac Chest Pain (ED) Additional Instructions: Please return to the ER with any worsening symptoms. Follow-up with your visitor services specialist as soon as possible for further evaluation. Take all medications as prescribed, including regularly scheduled medications. You may take muscle relaxants and use lidocaine patches for pain relief. Remember to drink lots of water. Patient Language: Bahamian Prescriptions: New lidocaine 5 % adhesive patch,medicated 1 patch topical DAILY Qty: 30 0RF Rx Instructions: leave on most painful area for up to 12 hrs cyclobenzaprine 10 mg tablet 10 mg PO TID PRN (Reason: muscle spasm) Qty: 30 0RF No Action Women's Multivitamin 18 mg iron-400 mcg-500 mg tablet 1 tablet PO DAILY cyanocobalamin (vitamin B-12) 1,000 mcg/mL solution 1,000 mcg IM MONTHLY Qty: 1 10RF valacyclovir 1 gram tablet Follow-up/Referrals: Breanna,MD Dov [Primary Care Provider, Unknown] Stand Alone Forms: Work/School Release IP Time of Disposition: 01:56
--- OUTSIDE RECORDS SUMMARY | 2025-05-06 20:46 | XMS_ITS | Clinical Summary ---
Author Organization [facility] Address [address] [place] [address] Care Team Providers Care [place] Seamer Name Role Phone Dov Carlos MD Primary Care Provider [phone] Allergies Active Allergy Reactions Criticality Noted Date Comments Codeine Headache,Itching,Rash High 02/28/2011 Tape Rash,Hives High 03/17/2018 Medications cyanocobalamin (B-12) 1000 MCG/ML injection ADMINISTER 1 ML IN THE MUSCLE MONTHLY 3 Active valACYclovir (VALTREX) 1 g tablet TAKE ONE TABLET BY MOUTH EVERY DAY. FOR outbreak, TAKE ONE TABLET BY MOUTH TWICE DAILY FOR 7 DAYS Active Multiple Vitamins-Mineral s (MULTIPLE VITAMINS/WOMENS OR) Active omeprazole (PRILOSEC) 40 MG capsuleIndicatio ns:Gastroesophag eal reflux disease without esophagitis Take 1 capsule (40 mg total) by mouth daily. 90 capsule 4 Active Active Problems Problem Noted Date Diagnosed Date ADHD (attention deficit hyperactivity disorder) GERD (gastroesophageal reflux disease) Immunizations Immunization Administration Dates Next Due PFIZER COVID-19 (ORIGINAL FO RMULATION, PURPLE CAP) mRNA, LNP-S, PF, 30 MCG/0.3 ML DOSE 11/21/2020,10/27/2020 Family History Medical History Relation Comments Cancer Maternal Grandmother Diabetes Mother Mental Health Sister Relation Status Comments Father Alive Maternal Grandmother Alive Mother Alive Sister Alive Social History Tobacco Use Types Packs/Day Years Used Date Smoking Tobacco: Never Smokeless Tobacco: Never Tobacco Cessation:Counseling Given: Yes Comments:Counseled by Dr. Carlos. Alcohol Use Standard Drinks/Week Comments Yes 0 (1 standard drink = 0.6 oz pur e alcohol) socially PHQ-2 Answer Date Recorded Patient Health Questionnaire-2 Score 1 11/16/2023 Comments No Sex and Gender Information Value Date Recorded Sex Assigned at Not on file Legal Sex Female 7:50 AM CDT Gender Identity Not on file Sexual Orientation Not on file Last Filed Vital Signs Vital Sign Reading Time Taken Comments Blood Pressure 127/78 11/16/2023 10:44 AM CDT Pulse 69 11/16/2023 10:44 AM CDT Temperature 36.7 C (98.1 F) 11/16/2023 10:44 AM CDT Respiratory Rate 18 11/16/2023 10:44 AM CDT Oxygen Saturation 98% 11/16/2023 10:44 AM CDT Inhaled Oxygen Concentration - - Weight 112.5 kg (248 lb) 11/16/2023 10:44 AM CDT Height 165.1 cm (5' 5) 11/16/2023 10:44 AM CDT Body Mass Index 41.27 11/16/2023 10:44 AM CDT Plan of Treatment Health Maintenance Due Date Last Done Comments Annual Physical 1985 DTaP, Tdap and Td Vaccines ( 1 - Tdap) 2001 Hepatitis B Vaccines (1 of 3 - 19+ 3-dose series) 2001 HPV Vaccines (1 - 3-dose SCD M series) 2009 PHQ-2 (Physician Levan) 07/27/2024 11/16/2023 COVID-19 Vaccine (3 - 2024-2 6 season) 2025 11/21/2020, 10/27/2020 Influenza Adult (#1) 2025 Mammogram Screening 03/25/2026 03/25/2024 Hepatitis C Completed 12/11/2023 Meningococcal B Vaccine Aged Out No l onger eligible based on patient's age to complete this topic Meningococcal Vaccine Aged Out No celia heather eligible based on patient's age to complete this topic Pneumococcal Vaccine: Pediatrics (0 to 5 Years) and At-Risk Patients (6 to 49 Years) Aged Out No longer eligible b ased on patient's age to complete this topic RSV Immunizations Under 20 Months Aged Out No longer eligible b ased on patient's age to complete this topic Procedures Procedure Name Priority Date/Time Associated Diagnosis Comments MAMMOGRAM GENERIC (SCAN ORDER) 03/25/2024 HEPATITIS C ANTIBODY Routine 12/11/2023 10:47 AM CDT Annual physical exam from Last 3 Months or Most Recently Relevant to Health Maintenance Results * MAMMOGRAM GENERIC (SCAN ORDER) (03/25/2024) Anatomical Region Laterality Modality Other 03/25/2024 [facility] Scanned SCANNING Final Resu lt * HEPATITIS C ANTIBODY (12/11/2023 10:47 AM CDT) HEPATITIS C AB NON-REACTI VE NON-REACT EDELMIRA 12/11/2023 9:52 PM CDT [facility] Comment: ANTIBODIES TO HCV NOT DETECTED. DOES NOT EXCLUDE THE POSSIBILITY OF EXPOSURE TO HCV. 12/11/2023 10:4 7 AM CDT Dov Carlos MD LABORATORY Final Result Performing Organization Address City/State/[facility] Co de Phone Number [facility] [address] [place] [address], [phone] from Last 3 Months or Most Recently Relevant to Health Maintenance Insurance [employer] Member Subscriber Plan / Payer (Ef fective 2023-Present) Name:Becky Mcintyre Relation to Subscriber:Self Name:Becky Mcintyre Payer ID:Not on file Group ID:Not on file Type:Not on file Address: [address] [place] [id number] [facility] Care Teams [place] Seamer Relationship Specialty Start Date End Date Dov Carlos MD [address] [facility] [address] [place] [id number] PCP - General INTERNAL MEDICINE 09/15/23
--- OUTSIDE RECORDS SUMMARY | 2025-05-06 20:46 | XMS_ITS | Encounter Summary ---
Author Organization [facility] Address [address] [place] [id number] Care Team Providers Care Business Unit Director Name Role Phone Dov Carlos MD Primary Care Provider [phone] Encounter Details Date Type Department Care Team (Late st Contact Info) Description 12/15/2023 BiiCode Message Enc [facility] - [place] [address] [address] [place] [address] [employer], [facility] Provider lab results Social History Tobacco Use Types Packs/Day Years Used Date Smoking Tobacco: Never Smokeless Tobacco: Never Comments:Counseled by Dr. Alejandra fried. Alcohol Use Standard Drinks/Week Comments Yes 0 (1 standard drink = 0.6 oz pur e alcohol) socially PHQ-2 Answer Date Recorded Patient Health Questionnaire-2 Score 1 11/16/2023 Comments No Sex and Gender Information Value Date Recorded Sex Assigned at Not on file Legal Sex Female 7:50 AM CDT Gender Identity Not on file Sexual Orientation Not on file documented as of this encounter Plan of Treatment Not on file documented as of this encounter Visit Diagnoses Not on filedocumented in this encounter Care Teams Business Unit Director Relationship Specialty Start Date End Date Dov Carlos MD [address] [place] [id number] PCP - General INTERNAL MEDICINE 09/15/23 documented as of this encounter
[2025-05-06 21:17] LABS: Hematocrit 36.6 % (37.0-47.0); Hemoglobin 11.9 g/dL (12.0-15.0); Immature Granulocyte Percent A 0.1 % (0-0.5); Lymphocytes Absolute Auto 2.48 K/mm3 (0.9-3.2); Mean Corpuscular HGB Conc 32.5 g/dl (32-36); Mean Corpuscular Hemoglobin 28.1 pg (26-34); Mean Corpuscular Volume 86.3 fl (80-100); Nucleated Red Blood Cells Absolute Auto 0.000 K/mm3 (0.0-0.012); Nucleated Red Blood Cells Perc 0.0 % (0.0-0.2); Platelet Count Result 213 k/mm3 (150-375); Red Blood Count 4.24 M/mm3 (4.2-5.4); White Blood Count 7.0 K/mm3 (4.5-10.0)
[2025-05-06 21:28] LABS: Alanine Aminotransferase 24 U/L (6-35); Albumin Level 4.0 g/dL (3.5-5.1); Alkaline Phosphatase 114 U/L (38-126); Anion Gap 6 mmol/L (4-12); Aspartate Amino Transferase 32 U/L (14-36); Bilirubin,Total 0.3 mg/dL (0.2-1.3); Blood Urea Nitrogen 20 mg/dL (7-17); Calcium 8.8 mg/dL (8.4-10.2); Carbon Dioxide 27 mmol/L (22-30); Chloride 105 mmol/L (98-107); Estimated CRCL calculation 99 ml/min; Estimated Glomerular Filt Rate > 60; Glucose 84 mg/dL (65-110); INR 0.9; Lipase 59 U/L (23-300); Partial Thromboplastin Time 30.1 Seconds (22.3-36.8); Potassium 3.6 mmol/L (3.4-5.0); Prothrombin Time 12.6 Seconds (11.1-14.7); Sodium 138 mmol/L (137-145); Total Protein 7.1 g/dL (6.3-8.2)
[2025-05-06 21:40] LABS: NT Pro B Type Natriuretic Pept 96 pg/mL (19.9-100); Troponin I < 0.012 ng/mL (0.000-0.034)
[2025-05-06 21:59] LABS: Thyroid Stimulating Hormone 1.950 uIU/mL (0.465-4.680)
[2025-05-06] MEDS: diphenhydrAMINE HCl CAP 25 MG CAPSULE PO (22:40)
[2025-05-06] MEDS: MORPHINE SULFATE (*CRX) 2 MG/ML INJ IV PUSH (22:41)
--- NOTE | 2025-05-06 23:57 | ECG_ITS ---
Test Date: 2025-05-07 00:06:11 Measurements Intervals [place] Rate: 61 P: 36 IA: 195 QRS: 9 QRSD: 103 T: 29 QT: 419 QTc: 425 Interpretive Statements SINUS RHYTHM INCOMPLETE RIGHT BUNDLE BRANCH BLOCK BASELINE ARTIFACT- I, II, III, AVR, AVL, AVF, V1 BORDERLINE ECG Compared to ECG 05/06/2025 20:53:28 NO SIGNIFICANT CHANGE Electronically Signed On 05-07-2025 16:37:30 CDT by Kevin Wall D.O.
[2025-05-07 00:36] LABS: Troponin I < 0.012 ng/mL (0.000-0.034)
[2025-05-07] MEDS: KETOROLAC 15 MG/ML VIAL (*BKC) IV PUSH (00:41)
== END 2025-05-07 02:07 | disposition home or self-care (01) ==
PROVIDERS: Student in an Organized Health Care Education/Training Program; Emergency Provider Registered Nurse; PCP Internal Medicine
DX: R07.89 Other chest pain (principal); R00.2 Palpitations; R20.0 Anesthesia of skin; S46.212A Strain of muscle, fascia and tendon of other parts of biceps, left arm, initial encounter; K21.9 Gastro-esophageal reflux disease without esophagitis; Z98.84 Bariatric surgery status; Z90.710 Acquired absence of both cervix and uterus; Z90.49 Acquired absence of other specified parts of digestive tract; I45.10 Unspecified right bundle-branch block; X58.XXXA Exposure to other specified factors, initial encounter
CPT/HCPCS: 36415; 71046; 80053; 83690; 83880; 84443; 84484; 85025; 85380; 85610; 85730; 93005; 96374; 99284; A9270; J1885; J2270